=== PATIENT | female | born 1975 ===

== ENCOUNTER → 2020-12-31 14:57 | Outpatient (BNVA) | payer OTHER, SELFPAY | DX: N20.2 Calculus of kidney with calculus of ureter (principal); N39.0 Urinary tract infection, site not specified; R73.03 Prediabetes; Z91.040 Latex allergy status | CPT/HCPCS: 99212 ==

== ENCOUNTER → 2021-07-02 10:07 | Outpatient (BNVA) | payer OTHER, SELFPAY | PROVIDERS: Visit Provider Physician Assistant | DX: E66.9 Obesity, unspecified (principal); Z68.35 Body mass index [BMI] 35.0-35.9, adult; I10 Essential (primary) hypertension; E78.5 Hyperlipidemia, unspecified; K44.9 Diaphragmatic hernia without obstruction or gangrene; F32.A Depression, unspecified; K21.9 Gastro-esophageal reflux disease without esophagitis; R00.0 Tachycardia, unspecified; J45.909 Unspecified asthma, uncomplicated; Z86.69 Personal history of other diseases of the nervous system and sense organs | CPT/HCPCS: 99202 ==

== ENCOUNTER 2021-07-12 09:43 | Outpatient (REF) | payer OTHER, SELFPAY ==
--- NOTE | ~2021-07-12 | XR_ITS ---
EXAMINATION: XR CHEST CLINICAL INFORMATION: Tachycardia COMPARISON: None TECHNIQUE: 2 views of the chest were obtained. FINDINGS: The cardiac and mediastinal contours are normal. The lungs are clear. There is no pleural effusion or pneumothorax. Bony structures are normal. XR/XR chest 2V IMPRESSION: Unremarkable examination.
--- NOTE | 2021-07-12 10:00 | ECG_ITS ---
Test Reason : TACHYCARDIA Blood Pressure : / mmHG Vent. Rate : 064 BPM Atrial Rate : 064 BPM P-R Int : 126 ms QRS Dur : 084 ms QT Int : 416 ms P-R-T Axes : 054 039 051 degrees QTc Int : 429 ms Normal sinus rhythm Normal ECG No previous ECGs available Referred By: Toyin Andujar Electronically Signed By:AMY RYDER MD
[2021-07-12 10:05] LABS: MANUAL DIFF FLAG NO
[2021-07-12 10:27] LABS: Basophils Percent Auto 0.6 % (0-2); Eosinophils Absolute Auto 0.2 X10*3/uL (0.0-0.4); Eosinophils Percent Auto 4.4 % (0-4); Hematocrit 41.2 % (37.0-47.0); Hemoglobin 13.9 g/dl (12.0-16.0); Imm Gran Abs Auto 0.04 X10*3/uL (0.00-0.03); Imm Gran Pct Auto 0.8 % (0.0-0.4); Lymphocytes Absolute Auto 2.3 X10*3/uL (1.2-4.9); Lymphocytes Percent Auto 45.1 % (20-40); Mean Corpuscular HGB Conc 33.7 g/dl (31.0-35.0); Mean Corpuscular Hemoglobin 28.4 pg (27.0-33.0); Mean Corpuscular Volume 84.3 fL (80.0-98.0); Mean Platelet Volume 10.4 fL (9.4-12.3); Monocytes Absolute Auto 0.4 X10*3/uL (0.1-1.2); Monocytes Percent Auto 8.4 % (2-11); Neutrophils Percent Auto 40.7 % (45-73); Platelet Count 316 X10*3/uL (160-400); Red Blood Count 4.89 X10*6/uL (4.20-5.50); Red Cell Distribution Width 11.9 % (11.0-16.0)
[2021-07-12 11:01] LABS: Estimated Average Glucose 146 mg/dL; Hemoglobin A1c % 6.7 %
[2021-07-12 11:24] LABS: Alanine Aminotransferase 63 U/L (0-31); Albumin Level 4.2 g/dL (3.5-5.0); Alkaline Phosphatase 71 U/L (39-117); Anion Gap 12 (12-20); Aspartate Amino Transferase 44 U/L (5-31); Bilirubin Total 0.7 mg/dL (0.0-1.0); Blood Urea Nitrogen 11 mg/dL (9-16); C Reactive Protein 0.16 mg/dL (< or = 0.50); Calcium 9.6 mg/dL (8.4-10.2); Carbon Dioxide 27 mmol/L (22-29); Chloride 104 mmol/L (96-108); Cholesterol 170 mg/dL; Estimated Glomerular Filt Rate > 60; Glucose Random 132 mg/dL (60-115); HDL Cholesterol 45 mg/dL; Iron 124 mcg/dL (30-160); LDL Cholesterol Calculated 102 mg/dl; Percent Iron Saturation 42 % (15-50); Potassium 4.5 mmol/L (3.3-5.1); Sodium 138 mmol/L (135-145); Total Iron Binding Capacity 293 mcg/dL (228-428); Total Protein 7.1 g/dL (6.5-8.0); Triglycerides 118 mg/dL; Unsaturated Iron Binding 169 ug/dL
[2021-07-12 11:41] LABS: Ferritin 314 ng/mL (10-250); TSH reflex Free T4 3.17 uIU/mL (0.32-4.0)
[2021-07-12 11:51] LABS: Folate > 20.0 ng/mL (> or = 4.0); Vitamin B12 > 2000 pg/mL (200-900)
[2021-07-12 12:51] LABS: Insulin 26 uU/mL (2-29)
[2021-07-15 13:25] LABS: Calcium (PTHI) 9.6 mg/dL (8.6-10.2); PTHI 84 pg/mL (16-77)
[2021-07-16 16:46] LABS: Zinc 94 mcg/dL (60-130)
[2021-07-19 10:06] LABS: Vitamin B1 10 nmol/L (8-30)
[2021-07-20 17:02] LABS: Vitamin A 37 mcg/dL (38-98)
== END 2021-07-12 09:44 | disposition home or self-care (01) ==
LOC: HO.XRAY 09:43
PROVIDERS: PCP Nurse Practitioner Family; Visit Provider Physician Assistant
DX: R00.0 Tachycardia, unspecified (principal); E66.9 Obesity, unspecified; I10 Essential (primary) hypertension; K21.9 Gastro-esophageal reflux disease without esophagitis; K44.9 Diaphragmatic hernia without obstruction or gangrene
CPT/HCPCS: 36415; 71046; 80053; 80061; 82306; 82607; 82728; 82746; 83036; 83525; 83540; 83970; 84425; 84443; 84590; 84630; 85025; 86140; 93005

== ENCOUNTER 2021-07-16 13:10 | Outpatient (REF) | payer OTHER, SELFPAY ==
[2021-07-18 14:31] LABS: H Pylori Breath Test Negative (Negative)
== END 2021-07-16 13:11 | disposition home or self-care (01) ==
LOC: HO.LNP 13:10
PROVIDERS: Visit Provider Physician Assistant
DX: E66.9 Obesity, unspecified (principal); K21.9 Gastro-esophageal reflux disease without esophagitis; I10 Essential (primary) hypertension; K44.9 Diaphragmatic hernia without obstruction or gangrene; R00.0 Tachycardia, unspecified
CPT/HCPCS: 83013

== ENCOUNTER → 2021-07-16 13:10 | Outpatient (BNVA) | payer OTHER, SELFPAY | PROVIDERS: PCP Nurse Practitioner Family; Visit Provider Physician Assistant | DX: Z11.0 Encounter for screening for intestinal infectious diseases (principal) | CPT/HCPCS: 99211 ==

== ENCOUNTER → 2021-07-18 08:00 | Outpatient (BNVA) | payer OTHER, SELFPAY | PROVIDERS: PCP Nurse Practitioner Family; Visit Provider Dietitian, Registered | DX: E66.9 Obesity, unspecified (principal); Z68.35 Body mass index [BMI] 35.0-35.9, adult | CPT/HCPCS: 97802 ==

== ENCOUNTER → 2021-07-24 08:21 | Outpatient (BNVA) | payer OTHER, SELFPAY | PROVIDERS: PCP Nurse Practitioner Family; Visit Provider Surgery | DX: Z13.89 Encounter for screening for other disorder (principal) ==

== ENCOUNTER → 2021-07-31 08:15 | Outpatient (BNVA) | payer OTHER, SELFPAY | PROVIDERS: PCP Nurse Practitioner Family; Referring Provider Surgery; Visit Provider Dietitian, Registered | DX: E66.9 Obesity, unspecified (principal); Z68.35 Body mass index [BMI] 35.0-35.9, adult; E11.9 Type 2 diabetes mellitus without complications; Z71.3 Dietary counseling and surveillance | CPT/HCPCS: 97803 ==

== ENCOUNTER 2021-08-19 08:35 | Outpatient (REF) | payer OTHER, SELFPAY ==
--- NOTE | ~2021-08-19 | US_ITS ---
EXAMINATION: US COMPLETE ABDOMEN WITH LIVER ELASTOGRAPHY CLINICAL INFORMATION: Obesity. Gastroesophageal reflux disease COMPARISON: None. TECHNIQUE: Real-time imaging of the abdominal viscera. Noninvasive ultrasound liver fibrosis assessment is performed using Tristan ElastPQ point quantification shear wave elastography (2D-SWE) with a C5-2 MHz transducer. Multiple elastography samples are obtained. FINDINGS: PANCREAS: Not visualized due to bowel gas ABDOMINAL AORTA: The proximal, middle, and distal aortic segments are normal in caliber. INFERIOR VENA CAVA: Visualized portions are normal. LIVER: Liver echotexture is increased. There are hypoechoic areas adjacent to the gallbladder, characteristic location of focal fatty sparing. The liver demonstrates normal size and contour. No other focal lesion or intrahepatic biliary duct dilatation. The right lobe measures 15.7 cm in length. The left lobe measures 11.4 cm in length. Portal flow is normal/hepatopedal Shear wave liver elastography median stiffness is 1.6 m/s (reference: normal median stiffness is 1.3 m/s or less). IQR/median stiffness to assess sampling precision is 0.1 (reference: good quality data set is IQR/median stiffness of 0.15 or less). GALLBLADDER: There are gallstones. The gallbladder is normal in size. The gallbladder wall is normal. COMMON BILE DUCT: Normal in caliber measuring 0.3 cm in diameter. RIGHT KIDNEY: Normal. No hydronephrosis. No renal calculi or focal parenchymal lesions. The kidney measures 11 cm in maximum dimension. LEFT KIDNEY: Normal. No hydronephrosis. No renal calculi or focal parenchymal lesions. The kidney measures 11.7 cm in maximum dimension. SPLEEN: Normal. The spleen measures 9.7 cm in maximum dimension. FREE FLUID: None. US/US abdomen comp w elastography IMPRESSION: 1. Impression: Echogenic liver probably representing fatty infiltration. Gallstones. Nonvisualization of the pancreas. 2. Liver elastography: Adequate liver sampling . Normal liver stiffness. REFERENCE: Society of Radiologists in Ultrasound Liver Stiffness Thresholds (2020): LIVER STIFFNESS THRESHOLDS: *Liver Stiffness equal or less than 1.3 m/s: High probability of being normal. *Liver Stiffness less than 1.7 m/s: In the absence of other known clinical signs, rules out compensated advanced chronic liver disease. *Liver Stiffness 1.7-2.1 m/s: Suggestive of compensated advanced chronic liver disease but need further test for confirmation. *Liver Stiffness over 2.1 m/s: Rules in compensated advanced chronic liver disease. *Liver Stiffness over 2.4 m/s: Suggestive of clinically significant portal hypertension. QUALITY OF DATA SET: *IQR/Median value equal or less than 0.15 implies a quality data set. *IQR/Median value over 0.15 implies a poor quality data set. SIGNIFICANT CHANGE FROM PRIOR EXAM: Significant change if liver stiffness measurement is 10% or greater from prior exam. OTHER CONSIDERATIONS: The stage of liver fibrosis may be overestimated in the setting of acute hepatitis, liver inflammation, elevated liver function tests, hepatic vascular congestion, obstructive cholestasis, non-fasting state, and infiltrative diseases such as amyloidosis and lymphoma. In some patients with NAFLD, the liver stiffness thresholds for compensated advanced chronic liver disease may be lower. In causes other than viral hepatitis and NAFLD, liver stiffness thresholds are not well established.
--- NOTE | ~2021-08-19 | FL_ITS ---
EXAMINATION: XR FLUOROSCOPY UPPER GI WITH AIR CLINICAL INFORMATION: Preop bariatric surgery. COMPARISON: None. TECHNIQUE: Upper GI was performed using thin and thick barium and effervescent granules. FINDINGS: Esophageal motility is normal. There is mild gastroesophageal reflux. No hernia is seen. The stomach and duodenum are normal. No fold thickening, mass, ulcer or stricture is seen. FLUOROSCOPY TIME: 0.5 minutes. DOSE AREA PRODUCT: 5 Gy-cm2. FL/FL upper GI w air IMPRESSION: Mild gastroesophageal reflux otherwise unremarkable examination.
== END 2021-08-19 08:36 | disposition home or self-care (01) ==
LOC: HO.US 08:35
PROVIDERS: Visit Provider Surgery
DX: Z01.818 Encounter for other preprocedural examination (principal); E66.9 Obesity, unspecified; K21.9 Gastro-esophageal reflux disease without esophagitis; I10 Essential (primary) hypertension; K44.9 Diaphragmatic hernia without obstruction or gangrene; R00.0 Tachycardia, unspecified
CPT/HCPCS: 74246; 76705; 76981

== ENCOUNTER → 2021-08-22 08:14 | Outpatient (BNVA) | payer OTHER, SELFPAY | PROVIDERS: PCP Nurse Practitioner Family; Visit Provider Surgery | DX: Z13.89 Encounter for screening for other disorder (principal) ==

== ENCOUNTER → 2021-08-27 08:11 | Outpatient (BNVA) | payer OTHER, SELFPAY | PROVIDERS: PCP Nurse Practitioner Family; Referring Provider Surgery; Visit Provider Dietitian, Registered | DX: E66.01 Morbid (severe) obesity due to excess calories (principal); Z68.34 Body mass index [BMI] 34.0-34.9, adult | CPT/HCPCS: 97803 ==

== ENCOUNTER → 2021-10-01 15:23 | Outpatient (BNVA) | payer OTHER, SELFPAY | PROVIDERS: PCP Nurse Practitioner Family; Referring Provider Surgery; Visit Provider Dietitian, Registered | DX: E66.9 Obesity, unspecified (principal); Z68.32 Body mass index [BMI] 32.0-32.9, adult; Z71.3 Dietary counseling and surveillance | CPT/HCPCS: 97803 ==

== ENCOUNTER → 2021-10-31 10:22 | Outpatient (BNVA) | payer OTHER, SELFPAY | PROVIDERS: PCP Nurse Practitioner Family | DX: N20.2 Calculus of kidney with calculus of ureter (principal) | CPT/HCPCS: 99212 ==

== ENCOUNTER → 2021-11-25 15:14 | Outpatient (BNVA) | payer OTHER, SELFPAY | PROVIDERS: PCP Nurse Practitioner Family; Visit Provider Physician Assistant Surgical | DX: Z01.818 Encounter for other preprocedural examination (principal); E66.9 Obesity, unspecified; Z68.31 Body mass index [BMI] 31.0-31.9, adult | CPT/HCPCS: 99212 ==

== ENCOUNTER 2021-12-11 06:07 | Inpatient (IN) | payer OTHER, SELFPAY ==
[2021-11-27 13:52] VITALS: BMI 31.9
[2021-12-04 07:16] LABS: MANUAL DIFF FLAG NO
[2021-12-04 07:32] LABS: Basophils Percent Auto 0.9 % (0-2); Eosinophils Absolute Auto 0.1 X10*3/uL (0.0-0.4); Eosinophils Percent Auto 4.1 % (0-4); Hematocrit 43.4 % (37.0-47.0); Hemoglobin 14.8 g/dl (12.0-16.0); Imm Gran Abs Auto 0.01 X10*3/uL (0.00-0.03); Imm Gran Pct Auto 0.3 % (0.0-0.4); Lymphocytes Absolute Auto 1.9 X10*3/uL (1.2-4.9); Lymphocytes Percent Auto 54.7 % (20-40); Mean Corpuscular HGB Conc 34.1 g/dl (31.0-35.0); Mean Corpuscular Hemoglobin 28.7 pg (27.0-33.0); Mean Corpuscular Volume 84.1 fL (80.0-98.0); Mean Platelet Volume 10.4 fL (9.4-12.3); Monocytes Absolute Auto 0.3 X10*3/uL (0.1-1.2); Monocytes Percent Auto 9.5 % (2-11); Neutrophils Percent Auto 30.5 % (45-73); Platelet Count 312 X10*3/uL (160-400); Red Blood Count 5.16 X10*6/uL (4.20-5.50); Red Cell Distribution Width 11.9 % (11.0-16.0); White Blood Count 3.4 X10*3/uL (4.8-10.8)
[2021-12-04 07:39] LABS: Estimated Average Glucose 120 mg/dL; Hemoglobin A1c % 5.8 %
[2021-12-04 07:40] LABS: INTERNATIONAL NORM RATIO 1.1 (0.9-1.1); Prothrombin Time 12.7 SEC (10.0-13.1)
[2021-12-04 07:42] LABS: Partial Thromboplastin Time 31.4 SEC (26.0-36.4)
[2021-12-04 07:58] LABS: Alanine Aminotransferase 20 U/L (0-31); Albumin Level 4.2 g/dL (3.5-5.0); Alkaline Phosphatase 70 U/L (39-117); Anion Gap 17 (12-20); Aspartate Amino Transferase 22 U/L (5-31); Bilirubin Total 0.7 mg/dL (0.0-1.0); Blood Urea Nitrogen 21 mg/dL (9-16); C Reactive Protein 0.14 mg/dL (< or = 0.50); Calcium 9.8 mg/dL (8.4-10.2); Carbon Dioxide 24 mmol/L (22-29); Chloride 104 mmol/L (96-108); Cholesterol 271 mg/dL; Creatinine Clr Calc Pharmacy 77.4; Estimated Glomerular Filt Rate > 60; Glucose Random 120 mg/dL (60-115); HDL Cholesterol 48 mg/dL; LDL Cholesterol Calculated 196 mg/dl; Potassium 4.8 mmol/L (3.3-5.1); Sodium 140 mmol/L (135-145); Total Protein 7.3 g/dL (6.5-8.0); Triglycerides 136 mg/dL
[2021-12-04 08:19] LABS: TSH reflex Free T4 2.51 uIU/mL (0.32-4.0)
--- NOTE | 2021-12-07 15:10 | MHC.SHP ---
Pre-Procedural Eval Section A Date of Service: 12/07/21 The patient is an INPATIENT: Yes The History & Physical has been completed within 30 days and I have reviewed it.: Yes Section B Chief Complaint: obesity Relevant Family History (Specify if Yes): No Relevant Social History: None Present Medications: None Medical History: No relevant PMH History of Previous Operations: No relevant previous surgery Allergies: Allergies Allergy/AdvReac Type Severity Reaction Status Date / Time aspirin Allergy Intermediate Wheezing Verified 11/27/21 13:49 latex [LATEX] Allergy Intermediate EYES AND Verified 11/27/21 13:49 MOUTH SWELLING Review of Systems Sugical H&P ROS: Negative: Constitution, Cardiovascular, Respiratory, Neurological, Psychiatric, Hem-Onc, Allergic/Immunologic, Gastrointestinal, Genitourinary, Musculoskeletal, Integumentary, Endocrine and Eyes/Ears/Nose/Throat Exam Surgical H&P Exam: Normal: HEENT, Normal: Heart, Normal: Lungs, Normal: Extremities, Normal: Abdomen, Normal: Skin and Normal: Neurological Plan Diagnosis/Plan: Unchanged I have reviewed the history and physical and performed a pertinent physical examination on my patient. No changes have occurred unless specified.
[2021-12-10 14:59] LABS: COVID-19 Test Negative (Negative)
[2021-12-11] VITALS (16 sets, daily range): BP systolic 94–131; BP diastolic 51–109; PULSE 74–92; RESP 14–19; TEMP 36.2–36.9; O2SAT 97–100
[2021-12-11] MEDS: Lactated Ringers 1,000 ML 999 ML IV (06:49)
--- NOTE | 2021-12-11 07:26 | HO.ANESPROP2 ---
HPI - Anesthesia Eval Consult details Narrative: 46 yo female patient for Laparoscopic sleeve gastrectomy, possible PMFSH Active Problems Active Problems: All Active Problems (Updated 11/27/21 @ 13:56 by Elin Marquez RN) Obesity (Acute) Hypertension (Acute) Hyperlipidemia (Acute) Hiatal hernia (Acute) Depression (Acute) Hx of migraines (Acute) GERD (gastroesophageal reflux disease) (Acute) Tachycardia (Acute) Asthma (Acute). Inhalers prn BMI 35.0-35.9,adult (Acute) BMI 32.0-32.9,adult (Acute) Pre-op evaluation (Acute) DJD (degenerative joint disease) (Acute) Non-insulin dependent type 2 diabetes mellitus (Acute) Renal and ureteric calculus (Acute) Kidney stones, calcium oxalate (Acute) Denies JOSIAH Past Medical History Medical History DJD (degenerative joint disease) Kidney stones, calcium oxalate Non-insulin dependent type 2 diabetes mellitus Ovarian cyst Renal and ureteric calculus Renal stone UTI (urinary tract infection) Family History Family History Mother Hypertension Hypercholesteremia Father Asthma Daughter Obesity PCOS (polycystic ovarian syndrome) Son Hypertension Asthma Autism Family history of problems with anesthesia: No Surgical History Surgical History Hx of abdominoplasty Hx of section Hx of colonoscopy Hx of endoscopy Hx of hysterectomy Hx of lithotripsy History of Problems with Anesthesia: No Social History Social History 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 If so, by whom?: No Are you DNR?: No Advance Directives: No Advance Directives Information Provided: Yes Advance Directives on File: No Recently lost weight without trying: No Nutrition Risks: No Nutritional Risk Patient : No (Hysterectomy) : No Poor oral hygiene: No Meds Allergies Allergy/AdvReac Type Severity Reaction Status Date / Time aspirin Allergy Intermediate Wheezing Verified 11/27/21 13:49 latex [LATEX] Allergy Intermediate EYES AND Verified 11/27/21 13:49 MOUTH SWELLING Active Medications: Current Medications Lactated Ringer's (Lr) 1,000 mls @ 999 mls/hr IV .Q1H1M BETTE Stop: 12/11/21 08:15 Last Admin: 12/11/21 06:49 Dose: 999 mls/hr Home Medications Medication Instructions Recorded Confirmed Last Taken Type cetirizine 10 mg tablet 10 mg PO DAILY 12/31/20 11/27/21 Unknown History famotidine 20 mg tablet 20 mg PO BID 12/31/20 11/25/21 Unknown History fluticasone propionate 220 1 puff PO BID 12/31/20 11/27/21 Unknown History mcg/actuation HFA aerosol inhaler (Flovent HFA) montelukast 10 mg tablet 10 mg PO DAILY allergies 12/31/20 11/27/21 Unknown History rosuvastatin 20 mg tablet 20 mg PO DAILY 12/31/20 11/27/21 Unknown History trazodone 50 mg tablet 50 mg PO BEDTIME PRN insomnia 12/31/20 11/27/21 Unknown History albuterol sulfate 90 mcg/actuation 2 puff inhalation Q6H PRN 07/02/21 11/27/21 Unknown History aerosol inhaler (ProAir HFA) Shortness Of Breath Or Wheezing amlodipine 10 mg tablet 10 mg PO DAILY 07/02/21 11/27/21 Unknown History ezetimibe 10 mg tablet 10 mg PO DAILY 07/02/21 11/27/21 Unknown History valsartan 160 mg tablet 160 mg PO DAILY 07/02/21 11/27/21 Unknown History sertraline 100 mg tablet 50 mg PO DAILY 11/25/21 11/27/21 Unknown History sumatriptan succinate 25 mg tablet 1 tab PO PRN Migraine Headache 11/27/21 Unknown History Exam Exam Date and Time: December 11, 2021 0726 Height,Weight and Vital Signs: Height 5 ft 5 in Weight 87.18 kg Last Vital Signs Temp 97.6 F 12/11/21 06:47 Pulse 82 12/11/21 06:47 Resp 18 12/11/21 06:47 BP 131/109 H 12/11/21 06:47 Pulse Ox 100 12/11/21 06:47 O2 Del Method 12/11/21 06:47 Pertinent Lab Results Pertinent Lab Results: Laboratory Tests 12/04/21 12/04/21 12/04/21 07:05 07:15 07:15 WBC 3.4 L RBC 5.16 Hgb 14.8 Hct 43.4 MCV 84.1 MCH 28.7 MCHC 34.1 RDW 11.9 Plt Count 312 MPV 10.4 Immature Gran % (Auto) 0.3 Neut % (Auto) 30.5 L Lymph % (Auto) 54.7 H [place] % (Auto) 9.5 Eos % (Auto) 4.1 H Baso % (Auto) 0.9 Lymph # (Auto) 1.9 [place] # (Auto) 0.3 Eos # (Auto) 0.1 Baso # (Auto) 0.0 Abs Immat Gran (auto) 0.01 Absolute Neuts (auto) 1.0 L Absolute Nucleated RBC 0.000 Nucleated RBC % (auto) 0.0 PT 12.7 INR 1.1 APTT 31.4 Sodium Potassium Chloride Carbon Dioxide Anion Gap BUN Creatinine Estim Creat Clear Calc Estimated GFR Random Glucose Estimat Average Glucose Hemoglobin A1c % Calcium Total Bilirubin AST ALT Alkaline Phosphatase C-Reactive Protein Total Protein Albumin Triglycerides Cholesterol LDL Cholesterol, Calc HDL Cholesterol TSH COVID-19 (SEVEN) COVID-19 Clin Com Blood Type A Positive Antibody Screen NEGATIVE 12/04/21 12/04/21 12/10/21 07:15 07:15 14:34 WBC RBC Hgb Hct MCV MCH MCHC RDW Plt Count MPV Immature Gran % (Auto) Neut % (Auto) Lymph % (Auto) [place] % (Auto) Eos % (Auto) Baso % (Auto) Lymph # (Auto) [place] # (Auto) Eos # (Auto) Baso # (Auto) Abs Immat Gran (auto) Absolute Neuts (auto) Absolute Nucleated RBC Nucleated RBC % (auto) PT INR APTT Sodium 140 Potassium 4.8 Chloride 104 Carbon Dioxide 24 Anion Gap 17 BUN 21 H D Creatinine 0.99 Estim Creat Clear Calc 77.4 Estimated GFR > 60 Random Glucose 120 H Estimat Average Glucose 120 Hemoglobin A1c % 5.8 Calcium 9.8 Total Bilirubin 0.7 AST 22 D ALT 20 Alkaline Phosphatase 70 C-Reactive Protein 0.14 Total Protein 7.3 Albumin 4.2 Triglycerides 136 Cholesterol 271 D LDL Cholesterol, Calc 196 HDL Cholesterol 48 TSH 2.51 COVID-19 (SEVEN) Negative COVID-19 Clin Com See Note Blood Type Antibody Screen Airway Mallampati Class: II TM Dist: >3cm Neck ROM: Full Loose/Missing/Broken Teeth: Yes (Missing 1 bottom back right. denies loose or broken teeth) Heart: RRR Lungs: CTAB. No wheezing Assessment and Plan Assessment Anesthesia Assessment: Anesthesia Plan Discussed and Chart Reviewed Final Anesthetic Review Family History of Problems with Anesthesia: No History of Problems with Anesthesia: No NPO: Yes ASA Class: III Final Preanesthetic Review: No Changes in Pt Med Stat, Meds/Allgs Chart Reviewed, Consent Obtained/Reviewed and Anes Risks/Benef Reviewed Patient Risk: Intermediate Procedure Risk: Intermediate Assessment/Block/Sedation in SS: Assess/Block/Sedation- Anesthetic Plan Anesthetic Plan: GA Disposition: Standard PACU and Inp. Admit - Standard Bed
[2021-12-11] MEDS: ceFAZolin Sodium/Dextrose,Iso 2 GM/50 ML PIGGYBACK IV ×2 (08:10→14:29)
[2021-12-11] MEDS: ondansetron HCL 4 MG/2 ML VIAL IVPUSH ×2 (10:18→21:31)
--- NOTE | 2021-12-11 10:20 | P.BOP_ITS ---
Brief Operative Note Date of Service: 12/11/21 Pre-op diagnosis: Severe obesity with comorbidities (see below) Post-op diagnosis: same Procedure: INITIAL PATIENT BMI ON PRESENTATION AT OUR OFFICE: 35,6 kg.m2 LAST BMI BEFORE SURGERY: 32.1 kg/m2 COMORBIDITIES:non-insulin dependent diabetes, hypertension, hyperlipidemia, asthma, GERD, migraines, insomnia, liver steatosis, nephrolithiasis, depression, DJD, liver fibrosis ?The patient presented to the Weight Management Program with significant obesity that was negatively impacting the patient's comorbidities as listed above.? The program is a phased program with a special focus on preoperative medical weight management to promote substantial weight loss and prepare the patients for the second phase of the program: bariatric surgery. The patient participated in an intensive weekly lifestyle ?intervention and exercise program during which the patient ?has lost between the initial office visit and the last preoperative visit 21.3lbs, or 9.94% of initial actual body weight. It was deemed appropriate for the patient to now have bariatric surgery. In light of the current Covid-19 pandemic and the well documented strong association of obesity and increased risk of worse outcomes if infected with Covid-19 (REFERENCES: https://pubmed.ncbi.nlm.nih.gov/38165396/ ,? https://pubmed.ncbi.nlm.nih.gov/72543740/ ), any delay in undergoing bariatric surgery may lead to the patient's worsening health condition and increased?risk of more severe Covid-19 disease if infected. In addition a recent?study from [facility] published in [facility] on 04/15/2021 ([email or web address]) found that, among patients with obesity, substantial weight loss achieved with surgery was associated with improved outcomes of COVID-19 infection. The findings suggest that obesity can be a modifiable risk factor for the severity of COVID-19 infection. In addition, the patient met the BMI-criteria for bariatric surgery based on the BMI on initial presentation. The patient should not be penalized for achieving such weight loss because ?it is not sustainable long-term without surgical intervention and it was achieved in preparation for bariatric surgery ?under my direction and based on my published research ([email or web address] and? https://www.soard.org/article/B9417-6754(78)79130-X/pdf ) ?that a 10% preoperative weight loss improves long-term weight loss after surgery and reduces perioperative complications.? Insurance carriers such as [facility] have endorsed my recommendations ?and have included in their policies criteria to include a 10% preoperative weight loss requirement. PROCEDURE: Esophago-gastroscopy, laparoscopic lysis of adhesions, laparoscopic sleeve gastrectomy and laparoscopic gastropexy INDICATIONS: This is a 46 year-old female who was electively scheduled for laparoscopic, possibly open sleeve gastrectomy. The risks and complications of the procedure were discussed with the patient in advance, particularly the possibility of ; pulmonary embolism; staple line leak; bleeding; GERD; cardiac, pulmonary, or renal complications; as well as long-term problems such as insufficient weight loss, vitamin deficiency, strictures, or ulcers. The patient understood all the risks, and was in agreement to proceed with surgery. DESCRIPTION OF PROCEDURE: After informed consent was obtained from the patient, the patient was given preoperative antibiotics, and was transferred to the operating room. After successful induction of general anesthesia, pneumatic compression devices were placed on both lower extremities. An upper endoscopy was performed next. The oropharynx and esophagus appeared to be within normal limits. There was no diaphragmatic hernia present consistent with the findings of the preoperative upper GI. The stomach was entered. Then after all fluid and air were suctioned and the stomach was fully decompressed, the scope was withdrawn and secured in the mid esophagus. The patient was then prepped and draped in the usual sterile manner, and abdominal access was established at the right upper quadrant with the Drea technique. A 12 mm blunt port was inserted, and the abdomen was insufflated with CO2 to a pressure of 15 mmHg. Under direct visualization, additional ports were placed, specifically two 5 mm Versi-step ports to the left upper quadrant, and a 5 mm Versi-Step port to the right upper quadrant. 1% lidocaine plain was used to infiltrate all port sites as well as all fascia defects. Using the EndoClose suture passer device, I placed a #1 Polysorb tie across the falciform ligament in order to retract it up against the abdominal wall and prevent injury of the ligament with our instruments during the procedure. Following that, the patient was placed in a steep reverse Trendelenburg position. An additional 5 mm port was placed to the right flank for the Mediflex retractor that was used to retract the left lobe of the liver. The gastro-esophageal fat pad was opened with the ultrasonic device (Thunderbeat, Olympus) and the anterior esophagus and hiatus were exposed. The angle of His was opened with the ultrasonic device the fundus of the stomach from any diaphragmatic and splenic attachments. I then opened the gastrocolic ligament between the transverse colon and the greater curvature of the stomach with the ultrasonic device to enter the lesser sac and facilitate the ligation of the short gastric vessels. I started at a mid-point along the greater curvature and using the Thunderbeat, all short gastric vessels were divided all the way to the angle of His until the left zaire was completely dissected at its entirety. I then divided the gastro-colic ligament distally to a distance of about 3-4 cm proximal to the pylorus. There were extensive congenital adhesions between the pancreas and posterior gastric wall. Those were lysed completely with the ultrasonic device. Adhesiolysis took approximately 45 min to complete. The stomach was then divided transversely with one Endo LUKE-45 purple and four LUKE-60 articulating orange loads using the AEON stapler and loads. Every effort was made that the gastric sleeve had a tubular shape and an even caliber throughout. Once the sleeve resection was completed, the staple line of the gastric sleeve was reinforced with Hemoclips. The resected stomach was retrieved without difficulty from the Drea port. A gastropexy was then performed in order to prevent postoperative GERD and partial gastric volvulus. Several interrupted 2.0 Surgidac sutures were placed between the sleeve's staple line and the previously divided greater omentum and gastro-colic ligament using the Endo-Stitch device. ?An upper endoscopy was performed. There was no narrowing at the GE junction. The scope was easily advanced all the way to the pylorus which was clearly visualized. There was no narrowing anywhere and the sleeve's caliber was even throughout. The sleeve's staple line was inspected and there was no evidence of ischemia, bleeding or dehiscence. At that point the gastroscope was withdrawn from the patient?s mouth while we were decompressing the bowel and the stomach from any remaining air. I looked into the lesser sac to see how the sleeve was situating and it was situating well. There was no bleeding from the staple line, spleen, or short gastric vessels. The Mediflex retractor was removed, and the undersurface of the liver was inspected and there was no bleeding. The patient was placed in supine position. I closed the fascial defect of the 12 mm port site with a figure of eight #1 Polysorb suture. Then 60ml of Ropivacaine plain with 10 mg of Dexamethasone were used to infiltrate the fascial closure as well as all skin incisions. A total of 7ml of Zynrelef was applied in the Drea wound. At this point, the abdomen was deflated, all ports were removed under direct vision, and no bleeding was noted from any of the port sites. The skin incisions were irrigated with saline and were closed with 4-0 absorbable monofilament sutures. Steri-Strips and OpSites were used to cover all incisions. The patient was extubated and was transferred in stable condition to the recovery room for further care. I was present and performed all díaz parts of the procedure. Mr. Olivarez was the nurse first assist. There were no residents to assist with this case. Alonso Barreto MD, PhD, FACS Surgeon: Gordon Barreto MD Anesthesia: GETA, local and other (TAP block and 7ml of Zynrelef) Was an Mica Inspector used for this Procedure?: Yes Mica Inspector: Dave Olivarez Estimated blood loss (mL): 10 IV fluids (mL): 2,500 Urine output (mL): 0 (No Liriano to record) Pathology: other (Stomach) Condition: stable Disposition: PACU
--- NOTE | 2021-12-11 10:24 | P.DS_ITS ---
DS: Providers Provider Date of Service: 12/12/21 Date of admission: 12/11/21 06:07 Primary care physician: Unknown Physician DS: Summary Hospital Course Hospital Course: ADMITTING DIAGNOSIS: obesity, niddm, htn, hld, depression ? DISCHARGE DIAGNOSIS: same, s/p laparoscopic sleeve gastrectomy ? PAST SURGICAL HISTORY: abdomnoplasty, cesarian section, hysterectomy ? PROCEDURE: upper endoscopy, laparoscopic sleeve gastrectomy ? DISCHARGE SUMMARY: ? History of Present Illness: ? The patient is a?46 year-old woman with a BMI of?35.6 kg/m2 and associated co- morbidities as described above. The patient had extensive work-up,lost?22 lbs preoperatively and was electively scheduled for laparoscopic, possible open sleeve gastrectomy and gastropexy. Risks and complications of the surgery were discussed with the patient in advance, particularly the possibility of , pulmonary embolism, anastomotic leak, bleeding, bowel injury, GERD, cardiac, josiah al or pulmonary complications. The patient understood all the risks and was in agreement with the surgical plan. ? Hospital Course: ? The patient underwent an uneventful laparoscopic sleeve gastrectomy with gastropexy on the day of admission. Postoperatively, the patient was transferred to the surgical floor. The patient received IV Acetaminophen and IV dilaudid for pain control. Patient was started on bariatric phase 1 diet POD #0. On postoperative day one, the patient was feeling well without nausea, vomiting, fevers, or tachycardia. The patient had some mild incisional pain and the abdo men was soft. ? On the morning of postoperative day one, the patient was continued on 1 ounce of water or ice every half hour. During the day, the patient did fairly well, having some incisional pain, but able to ambulate adequately and to tolerate liquids well. ? Since the patient is doing well, we decided that the patient was ready to be discharged. The patient was given instructions to follow-up with me next week and to call my office for any fever over 101, persistent abdominal pain, nausea, vomiting, GERD, symptoms of DVT such as calf tenderness, or leg swelling, or pulmonary embolism such as chest pain or shortness of breath. The patient was also instructed to drink 40-60 ounces of liquids per day using the 1-ounce cups. The patient had been given prescriptions for Tylenol for pain, Zofran prn for nausea, and pantoprazole and carafate previously. The patient was encouraged to ambulate and use the incentive spirometer. The patient was allowed to shower, but no baths, and encouraged to stay active at home. All of these instructions were given to the patient personally. All questions were answered and the patient understood all instructions, the instructions were also given to the patient in print. Time Spent with Patient Time attestation: Total time spent providing and/or coordinating discharge services: Discharge coordination time: Less than 30 minutes Quality: Safe Use of Opioids Does Pt have an Active Cancer Diagnosis on the Problem List?: No Quality: Stroke Does the patient have a stroke diagnosis?: No Physical Exam Vital Signs: Vital Signs: Last Vital Signs Temp 97.6 F 12/11/21 06:47 Pulse 82 12/11/21 06:47 Resp 18 12/11/21 06:47 BP 131/109 H 12/11/21 06:47 Pulse Ox 100 12/11/21 06:47 O2 Del Method 12/11/21 06:47 BMI result Body Mass Index 31.9 DS: Data Data Completed and Pending Pending studies at discharge: Pending at discharge 12/11/21 09:24 Surgical [PTH] Routine Labs on day of discharge: Laboratory Results - last 24 hr 12/10/21 14:34 COVID-19 (SEVEN) Negative COVID-19 Clin Com See Note Discharge Plan Discharge Patient Disposition: Home, Self-Care Discharge Diagnosis: s/p laparoscopic sleeve gastrectomy Referrals: Physician,Unknown J [Physician] - 1 Week Discharge Medications: Continued pantoprazole 40 mg tablet,delayed release (DR/EC) 40 mg PO DAILY Qty: 30 3RF Rx Instructions: stop famotidine while on this medication sucralfate 100 mg/mL suspension 10 ml PO BID Qty: 400 3RF Rx Instructions: stop famotidine while on this medication ondansetron HCl 4 mg tablet 4 mg PO Q6H PRN (Reason: nausea and vomiting) Qty: 20 0RF sumatriptan succinate 25 mg tablet 1 tab PO PRN (Reason: Migraine Headache) rosuvastatin 20 mg tablet 20 mg PO DAILY trazodone 50 mg tablet 50 mg PO BEDTIME PRN (Reason: insomnia) cetirizine 10 mg tablet 10 mg PO DAILY montelukast 10 mg tablet 10 mg PO DAILY Flovent HFA 220 mcg/actuation HFA aerosol inhaler 1 puff PO BID sertraline 100 mg tablet 50 mg PO DAILY ezetimibe 10 mg tablet 10 mg PO DAILY albuterol sulfate [ProAir HFA] 90 mcg/actuation HFA aerosol inhaler 2 puff inhalation Q6H PRN (Reason: Shortness Of Breath Or Wheezing) Held valsartan-hydrochlorothiazide 160-12.5 mg tablet 1 tab DAILY Hold Instructions: Resume on 12/12/21. Measure your blood pressure daily and send it to Dr. Barreto. Don't take the medication before he responds. In general, don't take the medication if your blood pressure is below 120/80 Discontinued cholecalciferol (vitamin D3) 50 mcg (2,000 unit) capsule 50 mcg PO DAILY Qty: 30 6RF pyridoxine (vitamin B6) 100 mg tablet 100 mg PO DAILY 90 Days Qty: 90 1RF vitamin A palmitate 10,000 unit tablet 20,000 unit PO DAILY 14 Days Qty: 28 0RF polyethylene glycol 3350 [Miralax] 17 gram powder in packet 17 g PO DAILY Qty: 14 0RF Rx Instructions: dissolve each packet in 8 oz of water and have 7 packets on 12/09/21. Repeat on 12/10/21 famotidine 20 mg tablet 20 mg PO BID Discharge Orders: Discharge Order (Routine); Ordered 12/12/21 Ordered By: Gordon Barreto Activity on Discharge: No heavy lifting Stand Alone Forms: Patient Portal Discharge page Care Plan Goals: weight loss Health Concerns: obesity Plan of Treatment: No tub baths, sex or returning to work until discussed at first post op appointment. No exercise, alcohol, tobacco or illegal drug use. Continue to use incentive spirometer hourly while awake. Walk in home for 5- 10 minutes every 2 hours during the first week. Follow all instructions in the bariatric handbook and call with any questions.Discharge Instructions 1. Please call your doctor or come back to the emergency room should any new symptoms arise. 2. You will receive a courtesy call from [facility] 24-48 hours after discharge. 3. Activity: abstain from alcohol, practice limited stair climbing, no bending, no driving, no exercise, no illicit substances, no lifting, no sex, no tub bath, no work. 4. Diet: continue as discussed with Dr. Barreto. 5. Dressing Change/Wound Care: Your incision is covered by clear bandages and guaze underneath. If the area is tender, you may apply an ice pack for short intervals (no more than 20 minutes on, followed by at least 20 minutes off). Do not apply heat. Do not use creams, lotions, or topical antibiotics unless instructed to do so by your surgeon. These can cause infection or allergic reaction. 6. Call your doctor if: - Your temperature exceeds 101.5 F - You experience excessive pain or swelling - You have an unexpected reaction to medication - You have excessive bleeding - You experience continued vomiting/nausea - Your incision begins to separate - Your incision shows signs of infection such as increased redness, swelling, excessive pain, heat, or drainage (light blood or clear fluid is normal) 7. General instructions: No lifting greater than 5 lbs for the next 4 weeks. No driving within 24 hours of taking narcotic pain medications. If you do not move your bowels in the next 2 days, please take milk of magnesia over the counter. Please follow the post op diet and do not advance your diet until you are seen in the office in about 2 weeks. Please walk around your home every hour or two to prevent blood clots from forming in your legs. You do not need to wake from sleeping to walk. Please sleep in a bed or couch to prevent kinking at the hips and knees. Please take your incentive spirometer (your lung senior technical manager) home with you and use it for the next few days to prevent pneumonias. You may shower, no hot tubs, baths or swimming pools. Please call the office with any questions or concerns such as increasing abdominal pain, fever, chills, shortness of breath, chest pain, leg pain or swelling, or redness or drainage from your incisions. Please stay on stage 3 diet which includes sugar free clear liquids such as ice pops and jello and broth and crystal light. Avoid all carbonation. Please drink 3 protein shakes with at least 25-30 grams of protein daily or 3 of the Celebrate 4:1 shakes which can be purchased in our office. The Celebrate shakes have all of the bariatric vitamins you need if you consume these shakes. If you are drinking other protein shakes, you will need to purchase the Celebrate multivitamins and calcium that we provide in the office (they will provide all the vitamins you need). Please make sure you are consuming at least 40-60 ounces of water in addition to your 3 protein shakes daily. Do not hesitate to contact the office with any questions at . The patient's medical history has been reviewed and they are considered low risk for post op DVT and therefore DVT prophylaxis is not considered necessary. Travel after surgery was reviewed. The patient has not disclosed any travel plans during the first 30 days after surgery and they have been advised that within the first 30 days after surgery any bus, plane, train or car travel over 2 hours in duration is contraindicated due to the possibility of developing blood clots from immobility. Any travel, needs to include periods of ambulation of 10 minutes in duration every 2 hours.? The patient was instructed to discuss any plans for travel during this period with their bariatric surgeon. Assessment: stable s/p laparoscopic sleeve gastrectomy Discharge Date/Time: 12/12/21 09:29
[2021-12-11] MEDS: Metoclopramide HCl 10 MG/2 ML VIAL IVPUSH (10:30)
--- NOTE | 2021-12-11 10:31 | PM.PNGS ---
Subjective Subjective Date of Service: 12/12/21 Interval history: Patient has mild incisional pain, but was able to ambulate and use the incentive spirometer. She is tolerating phase 1 bariatric diet Physical Exam Vital Signs: Vital Signs: Last Vital Signs Temp 97.6 F 12/11/21 06:47 Pulse 82 12/11/21 06:47 Resp 18 12/11/21 06:47 BP 131/109 H 12/11/21 06:47 Pulse Ox 100 12/11/21 06:47 O2 Del Method 12/11/21 06:47 BMI result Body Mass Index 31.9 GI: Inspection: Yes normal to inspection, Yes incision (clean, dry and intact) and Yes obesity Extrem: Right lower extremity: normal to inspection (no calf tenderness) Left lower extremity: normal to inspection (no calf tenderness) Objective Data Active Medications Albuterol Sulfate (Albuterol Sulfate 90 Mcg 8 Gm Inhaler) 2 puff INHALE Q6H PRN PRN Reason: Shortness Of Breath Or Wheezing Famotidine (Famotidine/Pf 20 Mg/2 Ml Vial) 20 mg IVPUSH BID BETTE Fentanyl (Fentanyl Citrate/Pf 100 Mcg/2 Ml Vial) 25 mcg IVPUSH Q5M PRN; Protocol PRN Reason: Pain, Moderate (Pain Scale 4-6 Hydromorphone HCl (Hydromorphone Hcl 0.5 Mg/0.5 Ml Syringe) 0.25 mg IVPUSH Q5M PRN; Protocol PRN Reason: Pain, Severe (Pain Scale 7-10) Lactated Ringer's (Lr) 1,000 mls @ 100 mls/hr IVCONT .Q10H [facility] Loratadine (Loratadine 10 Mg Tablet) 10 mg PO DAILY [facility] Metoclopramide HCl (Metoclopramide Hcl 10 Mg/2 Ml Vial) 10 mg IVPUSH Q6H PRN PRN Reason: Nausea Montelukast Sodium (Montelukast Sodium 10 Mg Tablet) 10 mg PO DAILY [facility] Non-Formulary Medication (Fluticasone Propionate [Flovent Hfa]) 1 puff PO BID [facility] Non-Formulary Medication (Valsartan-Hydrochlorothiazide) 1 tab PO DAILY [facility] Sertraline HCl (Sertraline Hcl 50 Mg Tablet) 50 mg PO DAILY [facility] Labs CBC & Chem 7: 12/12/21 05:14 12/12/21 05:12 Labs: Laboratory Results - last 24 hr 12/10/21 14:34 COVID-19 (SEVEN) Negative COVID-19 Clin Com See Note Procedures Date of Service Date of Service: 12/12/21 Progress Note: A&P Assessment and plan (1) Obesity: Status: Acute Assessment and Plan: s/p laparoscopic sleeve gastrectomy, lysis of adhesions and gastropexy Doing well Check am labs. If OK, will discharge home? (2) BMI 32.0-32.9,adult: Status: Acute (3) Hypertension: Status: Acute (4) Hyperlipidemia: Status: Acute (5) Status post sleeve gastrectomy: Status: Acute (6) Intra-abdominal adhesions: Status: Acute (7) Congenital intra-abdominal adhesions: Status: Acute (8) Depression: Status: Acute (9) Hx of migraines: Status: Acute (10) GERD (gastroesophageal reflux disease): Status: Acute (11) Asthma: Status: Acute (12) DJD (degenerative joint disease): Status: Acute (13) Non-insulin dependent type 2 diabetes mellitus: Status: Acute (14) Renal and ureteric calculus: Status: Acute (15) Steatosis, liver: Status: Acute (16) Liver fibrosis: Status: Acute (17) Insomnia: Status: Acute Time Spent With Patient Time: Total time spent is greater than 50% in coordination of care (as documented) at patient's floor/unit and/or counseling patient: Quality Stroke Does the patient have a stroke diagnosis?: No VTE Prior VTE?: No VTE Risk Level:: Surgical - moderate VTE Device Contraindication: N/A - Device Ordered VTE Drug Contraindication: Treatment Not Indicated
[2021-12-11] MEDS: Famotidine/PF 20 MG/2 ML VIAL IVPUSH ×2 (10:54→21:31)
[2021-12-11 11:11] LABS: Hematocrit 40.6 % (37.0-47.0)
[2021-12-11] MEDS: Lactated Ringers 1,000 ML 125 ML IVCONT ×2 (11:21→19:21)
[2021-12-11 11:34] LABS: Anion Gap 16 (12-20); Blood Urea Nitrogen 17 mg/dL (9-16); Carbon Dioxide 24 mmol/L (22-29); Chloride 100 mmol/L (96-108); Estimated Glomerular Filt Rate 53; Glucose Random 184 mg/dL (60-115); Potassium 3.9 mmol/L (3.3-5.1); Sodium 136 mmol/L (135-145)
[2021-12-11 11:46] LABS: Calcium 8.9 mg/dL (8.4-10.2)
[2021-12-11] MEDS: HYDROmorphone HCl 0.5 MG/0.5 ML SYRINGE 0.25 MG IVPUSH ×2 (12:10→12:20)
--- NOTE | 2021-12-11 13:38 | PHA.MEDREC ---
Pharmacy Consult ? Medication Reconciliation Pharmacy has completed the medication reconciliation. Reviewed med rec done by nursing
--- NOTE | 2021-12-11 15:45 | MHC.CM.PN ---
PATIENT LIVES WITH FAMILY HCP- EDUCATED, SHE DECLINED AT THE TIME INDEPENDENT AT HOME AND COMMUNITY DENIES USE OF DME OR RECEIVING HOME SERVICES COVID X2 PCP: [facility] WILL TRANSPORT D/C PLAN: HOME SELF-CARE
[2021-12-11] MEDS: 0.9 % Sodium Chloride Flush 3 ML SYRINGE IVFLUSH (21:31)
[2021-12-11] MEDS: SUMAtriptan succinate 25 MG TABLET PO (23:09)
[2021-12-12] MEDS: Lactated Ringers 1,000 ML 125 ML IVCONT (03:25)
[2021-12-12 04:00] VITALS: BP 105/69; PULSE 66; RESP 16; TEMP 36.4; O2SAT 98
[2021-12-12 05:58] LABS: MANUAL DIFF FLAG NO
[2021-12-12 06:05] LABS: Basophils Percent Auto 0.1 % (0-2); Hematocrit 40.5 % (37.0-47.0); Imm Gran Abs Auto 0.03 X10*3/uL (0.00-0.03); Imm Gran Pct Auto 0.3 % (0.0-0.4); Lymphocytes Absolute Auto 1.1 X10*3/uL (1.2-4.9); Lymphocytes Percent Auto 12.1 % (20-40); Mean Corpuscular HGB Conc 34.6 g/dl (31.0-35.0); Mean Corpuscular Hemoglobin 28.9 pg (27.0-33.0); Mean Corpuscular Volume 83.5 fL (80.0-98.0); Mean Platelet Volume 10.8 fL (9.4-12.3); Monocytes Absolute Auto 0.5 X10*3/uL (0.1-1.2); Monocytes Percent Auto 5.5 % (2-11); Neutrophils Absolute Auto 7.2 x10*3/uL (2.0-8.3); Platelet Count 305 X10*3/uL (160-400); Red Blood Count 4.85 X10*6/uL (4.20-5.50); Red Cell Distribution Width 11.8 % (11.0-16.0); White Blood Count 8.8 X10*3/uL (4.8-10.8)
[2021-12-12] MEDS: ondansetron HCL 4 MG/2 ML VIAL IVPUSH (06:13)
[2021-12-12 06:41] LABS: Anion Gap 16 (12-20); Blood Urea Nitrogen 10 mg/dL (9-16); Calcium 9.1 mg/dL (8.4-10.2); Carbon Dioxide 24 mmol/L (22-29); Chloride 104 mmol/L (96-108); Creatinine Clr Calc Pharmacy 85.1; Estimated Glomerular Filt Rate > 60; Glucose Random 117 mg/dL (60-115); Potassium 4.4 mmol/L (3.3-5.1); Sodium 140 mmol/L (135-145)
[2021-12-12] MEDS: Famotidine/PF 20 MG/2 ML VIAL IVPUSH (07:17)
[2021-12-12 07:23] VITALS: BP 123/84; PULSE 81; RESP 18; TEMP 36.3; O2SAT 99
--- NOTE | 2021-12-12 08:11 | MHC.CM.PN ---
PATIENT HAS BEEN MEDICALLY CLEARED FOR DISCHARGE TODAY; DISCHARGE DISPOSITION IS HOME SELF-CARE. FAMILY TO TRANSPORT.
[2021-12-12] MEDS: Valsartan 160 MG TABLET PO (08:14)
--- NOTE | 2021-12-12 11:24 | HO.POSTANES ---
Post Anesthesia Evaluation Post Anesthesia Evaluation Vital Signs: Vital Signs Temp Pulse Resp BP Pulse Ox O2 Del Method 12/12/21 07:23 97.3 F 81 18 123/84 99 Room Air 12/12/21 04:00 97.5 F 66 16 105/69 98 Room Air 12/11/21 23:55 98.4 F 75 14 102/59 L 97 Room Air Anesthesia: General Endotracheal-GETA Mental Status: Awake Pain Control: Satisfactory (Mild incisional pain) Nausea/Vomiting: None Hydration: Adequate Anesthesia-Related Issues: No Anes. Related Issues
== END 2021-12-12 09:29 | disposition home or self-care (01) | DRG 403 ==
LOC: HO.SSSA 10:28 → HO.S3 13:33
PROVIDERS: Physician Assistant Surgical; Admitting Provider Surgery; PCP Nurse Practitioner Family; Visit Provider Surgery
PROC: 0DB64Z3 Excision of Stomach, Percutaneous Endoscopic Approach, Vertical (ICD-10-PCS; CPT 43845; principal; 2021-12-11 07:30)
DX: E66.01 Morbid (severe) obesity due to excess calories (principal); K74.00 Hepatic fibrosis, unspecified; E11.9 Type 2 diabetes mellitus without complications; K76.0 Fatty (change of) liver, not elsewhere classified; I10 Essential (primary) hypertension; E78.5 Hyperlipidemia, unspecified; J45.909 Unspecified asthma, uncomplicated; K21.9 Gastro-esophageal reflux disease without esophagitis; G47.00 Insomnia, unspecified; G43.909 Migraine, unspecified, not intractable, without status migrainosus; N20.0 Calculus of kidney; F32.A Depression, unspecified; K66.0 Peritoneal adhesions (postprocedural) (postinfection); M19.90 Unspecified osteoarthritis, unspecified site; Z20.822 Contact with and (suspected) exposure to COVID-19; Z68.32 Body mass index [BMI] 32.0-32.9, adult; Z79.51 Long term (current) use of inhaled steroids; Z87.442 Personal history of urinary calculi; Z88.6 Allergy status to analgesic agent; Z91.040 Latex allergy status; Z79.899 Other long term (current) drug therapy
CPT/HCPCS: 36415; 80048; 80053; 80061; 83036; 84443; 85014; 85018; 85025; 85610; 85730; 86140; 86850; 86900; 86901; 87635; 88307; 88342; A4649; C9088; J0131; J0690; J1100; J1170; J2250; J2370; J2405; J2550; J2765; J2795; J3010

== ENCOUNTER → 2022-01-01 13:33 | Outpatient (BNVA) | payer OTHER, SELFPAY | PROVIDERS: PCP Nurse Practitioner Family; Visit Provider Physician Assistant Surgical | DX: E66.3 Overweight (principal); Z68.28 Body mass index [BMI] 28.0-28.9, adult; Z98.84 Bariatric surgery status; Z90.3 Acquired absence of stomach [part of] | CPT/HCPCS: 99212 ==

== ENCOUNTER → 2022-01-16 14:40 | Outpatient (BNVA) | payer OTHER, SELFPAY | PROVIDERS: PCP Nurse Practitioner Family; Visit Provider Physician Assistant Surgical | DX: E66.3 Overweight (principal); Z90.3 Acquired absence of stomach [part of] | CPT/HCPCS: 99212 ==

== ENCOUNTER → 2022-02-14 15:01 | Outpatient (BNVA) | payer OTHER, SELFPAY | PROVIDERS: PCP Nurse Practitioner Family; Visit Provider Physician Assistant Surgical | DX: E66.3 Overweight (principal); Z90.3 Acquired absence of stomach [part of]; Z68.26 Body mass index [BMI] 26.0-26.9, adult | CPT/HCPCS: 99212 ==

== ENCOUNTER 2022-02-28 07:11 | Outpatient (REF) | payer OTHER, SELFPAY ==
[2022-02-28 08:24] LABS: Basophils Percent Auto 0.7 % (0-2); Eosinophils Absolute Auto 0.1 X10*3/uL (0.0-0.4); Eosinophils Percent Auto 2.4 % (0-4); Hematocrit 41.4 % (37.0-47.0); Hemoglobin 13.5 g/dl (12.0-16.0); Lymphocytes Absolute Auto 1.6 X10*3/uL (1.2-4.9); Lymphocytes Percent Auto 56.2 % (20-40); MANUAL DIFF FLAG SCAN; Mean Corpuscular HGB Conc 32.6 g/dl (31.0-35.0); Mean Corpuscular Hemoglobin 28.4 pg (27.0-33.0); Mean Platelet Volume 11.1 fL (9.4-12.3); Monocytes Absolute Auto 0.3 X10*3/uL (0.1-1.2); Monocytes Percent Auto 8.6 % (2-11); Neutrophils Absolute Auto 0.9 x10*3/uL (2.0-8.3); Neutrophils Percent Auto 32.1 % (45-73); Platelet Count 276 X10*3/uL (160-400); Red Blood Count 4.76 X10*6/uL (4.20-5.50); Red Cell Distribution Width 12.4 % (11.0-16.0); SCAN SMEAR FLAG 1; White Blood Count 2.9 X10*3/uL (4.8-10.8)
[2022-02-28 08:30] LABS: INTERNATIONAL NORM RATIO 1.1 (0.9-1.1); Prothrombin Time 12.1 SEC (10.0-13.1)
[2022-02-28 08:32] LABS: Partial Thromboplastin Time 27.8 SEC (26.0-36.4)
[2022-02-28 08:39] LABS: Estimated Average Glucose 103 mg/dL; Hemoglobin A1c % 5.2 %
[2022-02-28 08:49] LABS: SLIDE REVIEW VERIFIED
[2022-02-28 09:00] LABS: Alanine Aminotransferase 15 U/L (0-31); Alkaline Phosphatase 80 U/L (39-117); Anion Gap 15 (12-20); Aspartate Amino Transferase 19 U/L (5-31); Blood Urea Nitrogen 16 mg/dL (9-16); C Reactive Protein 0.05 mg/dL (< or = 0.50); Calcium 9.2 mg/dL (8.4-10.2); Carbon Dioxide 22 mmol/L (22-29); Chloride 106 mmol/L (96-108); Cholesterol 206 mg/dL; Estimated Glomerular Filt Rate > 60; Glucose Random 94 mg/dL (60-115); HDL Cholesterol 41 mg/dL; Iron 135 mcg/dL (30-160); LDL Cholesterol Calculated 149 mg/dl; Percent Iron Saturation 54 % (15-50); Potassium 4.1 mmol/L (3.3-5.1); Sodium 139 mmol/L (135-145); Total Iron Binding Capacity 252 mcg/dL (228-428); Total Protein 6.8 g/dL (6.5-8.0); Triglycerides 84 mg/dL; Unsaturated Iron Binding 117 ug/dL
[2022-02-28 09:10] LABS: Vitamin B12 > 2000 pg/mL (200-900)
[2022-02-28 09:29] LABS: Ferritin 194 ng/mL (10-250); Insulin 9 uU/mL (2-29); TSH reflex Free T4 1.08 uIU/mL (0.32-4.0)
[2022-02-28 12:44] LABS: Vitamin D 25-OH Total 31.8 ng/mL (>30)
[2022-03-02 11:27] LABS: Calcium (PTHI) 9.5 mg/dL (8.6-10.2); PTHI 70 pg/mL (16-77)
[2022-03-04 17:52] LABS: Zinc 75 mcg/dL (60-130)
[2022-03-06 15:11] LABS: Vitamin B1 9 nmol/L (8-30)
[2022-03-06 15:26] LABS: Vitamin A 39 mcg/dL (38-98)
== END 2022-02-28 07:12 | disposition home or self-care (01) ==
LOC: HO.LAB 07:11
PROVIDERS: Visit Provider Surgery
DX: K91.2 Postsurgical malabsorption, not elsewhere classified (principal); Z90.3 Acquired absence of stomach [part of]
CPT/HCPCS: 36415; 80053; 80061; 82306; 82607; 82728; 83036; 83525; 83540; 83970; 84425; 84443; 84590; 84630; 85025; 85610; 85730; 86140

== ENCOUNTER 2022-03-04 11:09 | Day surgery (SDC) | payer OTHER, SELFPAY ==
--- NOTE | 2022-02-28 22:45 | MHC.SHP ---
Pre-Procedural Eval Section A Date of Service: 02/28/22 The patient is an INPATIENT: No The History & Physical has been completed within 30 days and I have reviewed it.: Yes Section B Chief Complaint: Calculus of gallbladder without cholecystitis with Relevant Family History (Specify if Yes): No Relevant Social History: None Present Medications: None Medical History: No relevant PMH History of Previous Operations: Relevant previous surgery/procedure and date(s) (sleeve gastrectomy) Allergies: Allergies Allergy/AdvReac Type Severity Reaction Status Date / Time aspirin Allergy Intermediate Wheezing Verified 02/24/22 08:43 latex [LATEX] Allergy Intermediate EYES AND Verified 02/24/22 08:43 MOUTH SWELLING Review of Systems Sugical H&P ROS: Negative: Constitution, Cardiovascular, Respiratory, Neurological, Psychiatric, Hem-Onc, Allergic/Immunologic, Gastrointestinal, Genitourinary, Musculoskeletal, Integumentary, Endocrine and Eyes/Ears/Nose/Throat Exam Surgical H&P Exam: Normal: HEENT, Normal: Heart, Normal: Lungs, Normal: Extremities, Normal: Abdomen, Normal: Skin and Normal: Neurological Plan Diagnosis/Plan: Unchanged I have reviewed the history and physical and performed a pertinent physical examination on my patient. No changes have occurred unless specified.
--- NOTE | 2022-03-03 11:39 | P.CONAN_ITS ---
Documented by User: Kia Deshpande NP 03/03/22 11:41 HPI - Anesthesia Eval Consult details Narrative: 46yo F for Cholecystectomy Laparoscopic s/p gastric sleeve 11/2021 with GA-ETT 7 PMFSH Active Problems Active Problems: All Active Problems (Updated 02/24/22 @ 08:49 by Gordon Barreto MD) Cholelithiasis (Acute) Postgastrectomy malabsorption (Acute) Overweight (BMI 25.0-29.9) (Acute) Status post sleeve gastrectomy (Acute) Insomnia (Acute) Liver fibrosis (Acute) Steatosis, liver (Acute) Congenital intra-abdominal adhesions (Acute) Intra-abdominal adhesions (Acute) Obesity (Acute) Hypertension (Acute) Hyperlipidemia (Acute) Hiatal hernia (Acute) Depression (Acute) Hx of migraines (Acute) GERD (gastroesophageal reflux disease) (Acute) Tachycardia (Acute) Asthma (Acute) BMI 35.0-35.9,adult (Acute) BMI 32.0-32.9,adult (Acute) Pre-op evaluation (Acute) DJD (degenerative joint disease) (Acute) Non-insulin dependent type 2 diabetes mellitus (Acute) Renal and ureteric calculus (Acute) Kidney stones, calcium oxalate (Acute) Past Medical History Medical History Asthma DJD (degenerative joint disease) Kidney stones, calcium oxalate Non-insulin dependent type 2 diabetes mellitus Ovarian cyst Renal and ureteric calculus Renal stone UTI (urinary tract infection) Family History Family History Mother Hypertension Hypercholesteremia Father Asthma Daughter Obesity PCOS (polycystic ovarian syndrome) Son Hypertension Asthma Autism Family history of problems with anesthesia: No Surgical History Surgical History Hx of abdominoplasty Hx of section Hx of colonoscopy Hx of endoscopy Hx of hysterectomy Hx of lithotripsy Status post sleeve gastrectomy History of Problems with Anesthesia: No Social History Social History Are you a primary respiratory care assistant to a significant other at home: Yes (sons 27 + 16 has autism) Do you presently have visiting nurse or other home services: Yes (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) Alcohol intake: current Alcohol intake frequency: holidays/special occasions only Patient Tobacco Use Status: Never used Tobacco Use of substances other than those prescribed or required for medical reasons: No Are you DNR?: No Advance Directives: No Advance Directives Information Provided: Yes service: No Current occupational status: unemployed Meds Allergies Allergy/AdvReac Type Severity Reaction Status Date / Time aspirin Allergy Intermediate Wheezing Verified 03/04/22 11:26 latex [LATEX] Allergy Intermediate EYES AND Verified 03/04/22 11:26 MOUTH SWELLING Home Medications Medication Instructions Recorded Confirmed Last Taken Type cetirizine 10 mg tablet 10 mg PO DAILY 12/31/20 02/24/22 Unknown History fluticasone propionate 220 1 puff PO BID 12/31/20 02/24/22 Unknown History mcg/actuation HFA aerosol inhaler (Flovent HFA) montelukast 10 mg tablet 10 mg PO DAILY allergies 12/31/20 02/24/22 Unknown History trazodone 50 mg tablet 50 mg PO BEDTIME PRN insomnia 12/31/20 02/24/22 Unknown History albuterol sulfate 90 mcg/actuation 2 puff inhalation Q6H PRN 07/02/21 02/24/22 Unknown History aerosol inhaler (ProAir HFA) Shortness Of Breath Or Wheezing sumatriptan succinate 25 mg tablet 1 tab PO PRN Migraine Headache 11/27/21 02/24/22 Unknown History docusate sodium 100 mg capsule 100 mg PO DAILY PRN Constipation 03/04/22 Unknown History Exam Exam Date and Time: March 03, 2022 1139 Pertinent Lab Results Pertinent Lab Results: Laboratory Tests 02/28/22 07:30 Blood Type A Positive Antibody Screen NEGATIVE Laboratory Tests 02/28/22 02/28/22 07:30 07:30 WBC 2.9 L Hgb 13.5 Hct 41.4 Plt Count 276 Sodium 139 Potassium 4.1 Chloride 106 Carbon Dioxide 22 BUN 16 D Creatinine 0.84 Narrative Narrative: EKG 06/2021 Vent. Rate : 064 BPM ? ? Atrial Rate : 064 BPM ?? P-R Int : 126 ms? QRS Dur : 084 ms ? ? QT Int : 416 ms ? ? ? P-R-T Axes : 054 039 051 degrees ?? QTc Int : 429 ms ? Normal sinus rhythm Normal ECG No previous ECGs available Assessment and Plan Assessment Anesthesia Assessment: Chart Reviewed Final Anesthetic Review Family History of Problems with Anesthesia: No History of Problems with Anesthesia: No Documented by User: Scarlett Nails MD 03/04/22 13:57 [facility] Past Medical History Medical History Asthma DJD (degenerative joint disease) Kidney stones, calcium oxalate Non-insulin dependent type 2 diabetes mellitus Ovarian cyst Renal and ureteric calculus Renal stone UTI (urinary tract infection) Family History Family History Mother Hypertension Hypercholesteremia Father Asthma Daughter Obesity PCOS (polycystic ovarian syndrome) Son Hypertension Asthma Autism Surgical History Surgical History Hx of abdominoplasty Hx of section Hx of colonoscopy Hx of endoscopy Hx of hysterectomy Hx of lithotripsy Status post sleeve gastrectomy Social History Social History Are you a primary respiratory care assistant to a significant other at home: Yes (sons 27 + 16 has autism) Do you presently have visiting nurse or other home services: Yes (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) Alcohol intake: current Alcohol intake frequency: holidays/special occasions only Patient Tobacco Use Status: Never used Tobacco Use of substances other than those prescribed or required for medical reasons: No Are you DNR?: No Advance Directives: No Advance Directives Information Provided: Yes service: No Current occupational status: unemployed Meds Allergies Allergy/AdvReac Type Severity Reaction Status Date / Time aspirin Allergy Intermediate Wheezing Verified 03/04/22 11:26 latex [LATEX] Allergy Intermediate EYES AND Verified 03/04/22 11:26 MOUTH SWELLING Home Medications Medication Instructions Recorded Confirmed Last Taken Type cetirizine 10 mg tablet 10 mg PO DAILY 12/31/20 02/24/22 Unknown History fluticasone propionate 220 1 puff PO BID 12/31/20 02/24/22 Unknown History mcg/actuation HFA aerosol inhaler (Flovent HFA) montelukast 10 mg tablet 10 mg PO DAILY allergies 12/31/20 02/24/22 Unknown History trazodone 50 mg tablet 50 mg PO BEDTIME PRN insomnia 12/31/20 02/24/22 Unknown History albuterol sulfate 90 mcg/actuation 2 puff inhalation Q6H PRN 07/02/21 02/24/22 Unknown History aerosol inhaler (ProAir HFA) Shortness Of Breath Or Wheezing sumatriptan succinate 25 mg tablet 1 tab PO PRN Migraine Headache 11/27/21 02/24/22 Unknown History docusate sodium 100 mg capsule 100 mg PO DAILY PRN Constipation 03/04/22 Unknown History Exam Airway Mallampati Class: II TM Dist: >3cm Neck ROM: Full Loose/Missing/Broken Teeth: No Heart: RRR Lungs: CTA Assessment and Plan Assessment Anesthesia Assessment: Anesthesia Plan Discussed Final Anesthetic Review NPO: Yes ASA Class: II Final Preanesthetic Review: Meds/Allgs Chart Reviewed, Consent Obtained/Reviewed and Anes Risks/Benef Reviewed Patient Risk: Low Procedure Risk: Intermediate Anesthetic Plan Anesthetic Plan: GA Disposition: Standard PACU
[2022-03-03 15:34] LABS: COVID-19 Test Negative (Negative); IDNOW Serial# BCCEAD1C
[2022-03-04] VITALS (11 sets, daily range): BP systolic 126–144; BP diastolic 82–96; PULSE 65–91; RESP 11–20; TEMP 36.4–36.6; O2SAT 99–100; BMI 25.7
[2022-03-04] MEDS: Lactated Ringers 1,000 ML 100 ML IVCONT (11:50)
[2022-03-04 11:54] LABS: Glucose, Whole Blood 70 mg/dL (60-115)
--- NOTE | 2022-03-04 13:27 | P.BOP_ITS ---
Brief Operative Note Date of Service: 03/04/22 Pre-op diagnosis: Cholelithiasis Post-op diagnosis: same Procedure: PROCEDURE DATE: 03/04/22 PREOPERATIVE DIAGNOSIS: Symptomatic cholelithiasis POSTOPERATIVE DIAGNOSIS: Same as above. PROCEDURE: Laparoscopic cholecystectomy ? PLEASE REVIEW TO INCLUDE THIS PROCEDURE: and upper endoscopy Surgeon: Alonso Barreto M.D., Ph.D. Construction Trench Digger: Toyin Andujar PA-C Anesthesia: General endotracheal anesthesia Estimated blood loss: Minimal FINDINGS AND PROCEDURE: OPERATIVE INDICATIONS: The patient is a 46 year old female known to me who had an uneventful sleeve gastrectomy with excellent weight loss so far. During the preoperative workup, the patient was found to have cholelithiasis which appears now to be symptomatic. I recommended cholecystectomy. Risks and complications of the surgery were discussed with the patient in advance, particularly the postoperative bleeding, infection, DVT or PE, bile leak, major bile duct injury that may require additional surgical intervention, cardiac, pulmonary or renal complications among others. The patient understood the risks and was in agreement with the plan. PROCEDURE: After informed consent was obtained by the patient, the patient was transferred to the Operating Room and was placed in the supine position. The patient was given preoperative antibiotics and after successful induction of general anesthesia pneumatic compression devices were placed. The patient was then prepped and draped in the usual sterile manner and abdominal access was established with the Drea port. The abdomen was insufflated with C02 to a pressure of 15 mmHg. A 5 mm Versi-step port was placed, slightly to the right and superior from the umbilicus. The 5 mm camera was introduced. We inspected the area where the port had been placed and there was no injury. The patient was then placed initially in a steep reverse Trendelenburg position and three additional ports were placed, specifically a 12 mm Versi-step port just to the right of the midline below the xiphoid process and two 5 mm Versi-step ports at the right upper quadrant and right flank. 1% Lidocaine was used to anesthetize all port sites premptively. At that point the patient was placed in a steep reverse Trendelenburg position tilted to the left side. The gallbladder was retracted cephalad and laterally. The peritoneal attachments of the gallbladder at the triangle of Calot posteri laurita and anteriorly were taken down. The cystic duct was seen. There was an anterior and posterior branch of the cystic artery that were both seen. The cystic duct was skeletonized all the way to the infundibulum of the gallbladder . In a similar fashion we also cleaned the liver bed just behind the two branches of the cystic artery to make sure there was no additional structures in this area. Once we confirmed that all three structures were entering into the gallbladder and there were no other structures in the area, they were all clipped with two clips proximally, one distally and were cut in- between. We then using the electrocautery we slowly took down the gallbladder from the liver bed. Small areas of bleeding from the liver parenchyma were controlled with the cautery. After the gallbladder was completely detached from the liver bed, it was placed in an EndoCatch bag and was removed without difficulty from the xiphoid port. We then inspected the clips at the cystic duct and artery and were both in place. There was no active bleeding from the liver bed. At that point the patient was placed in supine position, we deflated the abdomen and we removed all ports under direct vision and no bleeding was noted from any of the port sites. The fascia of the 12 mm port was closed using a #1 Polysorb suture. 30cc of Ropivacaine plain were used to infiltrate the fascial closure as well as all skin incisions. The wounds were irrigated with saline mixed with antibiotic solution and then the skin was closed with 4-0 Monocryl subcuticular sutures antibiotic- coated. Steri-strips and OpSites were used to cover all incisions. The patient extubated and was transferred in stable condition to the Recovery Room for further care. I was present and performed all steps of the procedure. Con was the news production assistant. There were no residents to assist with this case. Alonso Barreto M.D., Ph.D., F.A.C.S. Surgeon: Gordon Barreto MD Anesthesia: GETA, local and other (TAP and Zynrelef) Was an Construction Trench Digger used for this Procedure?: No Construction Trench Digger: Toyin Andujar Estimated blood loss (mL): 10 IV fluids (mL): 800 Urine output (mL): 0 (No Liriano to record) Pathology: other (Gallbladder) Condition: stable Disposition: PACU
[2022-03-04] MEDS: oxyCODONE HCl Immed Release 5 MG TABLET PO (15:22)
[2022-03-04] MEDS: HYDROmorphone HCl 0.5 MG/0.5 ML SYRINGE 0.25 MG IVPUSH ×2 (15:22→15:47)
[2022-03-04] MEDS: Famotidine/PF 20 MG/2 ML VIAL IVPUSH (16:58)
== END 2022-03-04 17:19 | disposition home or self-care (01) ==
PROVIDERS: Physician Assistant Surgical; PCP Nurse Practitioner Family; Visit Provider Surgery
PROC: 0FT44ZZ Resection of Gallbladder, Percutaneous Endoscopic Approach (ICD-10-PCS; CPT 47562; principal; 2022-03-04 12:50)
DX: K80.10 Calculus of gallbladder with chronic cholecystitis without obstruction (principal); E11.9 Type 2 diabetes mellitus without complications; J45.909 Unspecified asthma, uncomplicated; Z98.84 Bariatric surgery status; Z79.51 Long term (current) use of inhaled steroids; Z79.899 Other long term (current) drug therapy; Z88.8 Allergy status to other drugs, medicaments and biological substances; Z87.442 Personal history of urinary calculi; Z91.040 Latex allergy status; Z20.822 Contact with and (suspected) exposure to COVID-19; K91.2 Postsurgical malabsorption, not elsewhere classified
CPT/HCPCS: 47562; 82947; 86850; 86900; 86901; 87635; 88304; C9088; J0131; J0690; J1100; J1170; J2250; J2405; J2795; J3010

== ENCOUNTER → 2022-03-12 10:59 | Outpatient (BNVA) | payer OTHER, SELFPAY | PROVIDERS: PCP Nurse Practitioner Family; Visit Provider Physician Assistant Surgical | DX: E66.3 Overweight (principal); Z68.25 Body mass index [BMI] 25.0-25.9, adult; Z98.84 Bariatric surgery status; Z90.3 Acquired absence of stomach [part of]; Z90.49 Acquired absence of other specified parts of digestive tract | CPT/HCPCS: 99212 ==

== ENCOUNTER → 2022-04-23 14:58 | Outpatient (BNVA) | payer OTHER, SELFPAY | PROVIDERS: PCP Nurse Practitioner Family; Visit Provider Physician Assistant Surgical | DX: Z98.84 Bariatric surgery status (principal); Z90.49 Acquired absence of other specified parts of digestive tract | CPT/HCPCS: 99212 ==

== ENCOUNTER → 2022-05-09 15:16 | Outpatient (BNVA) | payer OTHER, SELFPAY | PROVIDERS: PCP Nurse Practitioner Family; Visit Provider Dietitian, Registered | DX: E66.9 Obesity, unspecified (principal); Z90.3 Acquired absence of stomach [part of] | CPT/HCPCS: 97803 ==

== ENCOUNTER → 2022-06-04 15:17 | Outpatient (BNVA) | payer OTHER, SELFPAY | PROVIDERS: PCP Nurse Practitioner Family; Visit Provider Physician Assistant Surgical | DX: Z13.89 Encounter for screening for other disorder (principal) ==

== ENCOUNTER → 2022-08-01 14:07 | Outpatient (BNVA) | payer OTHER, SELFPAY | PROVIDERS: PCP Nurse Practitioner Family; Visit Provider Physician Assistant Surgical | DX: E66.9 Obesity, unspecified (principal); Z68.24 Body mass index [BMI] 24.0-24.9, adult; Z90.49 Acquired absence of other specified parts of digestive tract; Z90.3 Acquired absence of stomach [part of] | CPT/HCPCS: 99212 ==

== ENCOUNTER 2022-08-08 14:51 | Outpatient (REF) | payer OTHER, SELFPAY ==
--- NOTE | ~2022-08-08 | US_ITS ---
EXAMINATION: US RETROPERITONEAL LIMITED (RENAL ONLY) CLINICAL INFORMATION: Calculus of kidney with calculus of ureter. COMPARISON: Previous renal ultrasound October [address] July 2021 TECHNIQUE: Real-time imaging of the kidneys. FINDINGS: RIGHT KIDNEY: 10.8 x 5.1 x 5.1 cm (SAG x AP x TRV). The kidney is normal in size, contour, and echogenicity. Renal cortical thickness is normal. There is a 4 x 5 mm stone in the mid to lower pole. No focal parenchymal lesions or hydronephrosis. LEFT KIDNEY: 11.8 x 5.8 x 4.5 cm (SAG x AP x TRV). The kidney is normal in size, contour, and echogenicity. Renal cortical thickness is normal. No calculi or focal parenchymal lesions. No hydronephrosis. US/US renal BI IMPRESSION: Right renal stone. Normal left kidney.
== END 2022-08-08 14:52 | disposition home or self-care (01) ==
LOC: HO.US 14:51
PROVIDERS: Visit Provider Nurse Practitioner Family
DX: N20.2 Calculus of kidney with calculus of ureter (principal)
CPT/HCPCS: 76775

== ENCOUNTER 2022-09-10 07:54 | Outpatient (REF) | payer OTHER, SELFPAY ==
[2022-09-10 08:20] LABS: Basophils Percent Auto 0.8 % (0-2); Eosinophils Absolute Auto 0.1 X10*3/uL (0.0-0.4); Eosinophils Percent Auto 1.9 % (0-4); Hemoglobin 13.5 g/dl (12.0-16.0); Imm Gran Abs Auto 0.01 X10*3/uL (0.00-0.03); Imm Gran Pct Auto 0.4 % (0.0-0.4); Lymphocytes Absolute Auto 1.5 X10*3/uL (1.2-4.9); Lymphocytes Percent Auto 55.3 % (20-40); MANUAL DIFF FLAG SCAN; Mean Corpuscular HGB Conc 33.8 g/dl (31.0-35.0); Mean Platelet Volume 10.1 fL (9.4-12.3); Monocytes Absolute Auto 0.2 X10*3/uL (0.1-1.2); Monocytes Percent Auto 9.2 % (2-11); Neutrophils Absolute Auto 0.9 x10*3/uL (2.0-8.3); Neutrophils Percent Auto 32.4 % (45-73); Platelet Count 279 X10*3/uL (160-400); Red Blood Count 4.65 X10*6/uL (4.20-5.50); Red Cell Distribution Width 12.1 % (11.0-16.0); SCAN SMEAR FLAG 1; White Blood Count 2.6 X10*3/uL (4.8-10.8)
[2022-09-10 08:31] LABS: Estimated Average Glucose 97 mg/dL
[2022-09-10 08:43] LABS: SLIDE REVIEW VERIFIED
[2022-09-10 08:58] LABS: Alanine Aminotransferase 18 U/L (0-31); Alkaline Phosphatase 103 U/L (39-117); Anion Gap 12 (12-20); Aspartate Amino Transferase 20 U/L (5-31); Blood Urea Nitrogen 18 mg/dL (9-16); C Reactive Protein < 0.04 mg/dL (< or = 0.50); Calcium 9.2 mg/dL (8.4-10.2); Carbon Dioxide 25 mmol/L (22-29); Chloride 107 mmol/L (96-108); Cholesterol 216 mg/dL; Estimated Glomerular Filt Rate > 60; Glucose Random 98 mg/dL (60-115); HDL Cholesterol 55 mg/dL; Iron 178 mcg/dL (30-160); LDL Cholesterol Calculated 141 mg/dl; Percent Iron Saturation 63 % (15-50); Potassium 4.7 mmol/L (3.3-5.1); Sodium 139 mmol/L (135-145); Total Iron Binding Capacity 281 mcg/dL (228-428); Total Protein 6.8 g/dL (6.5-8.0); Triglycerides 104 mg/dL; Unsaturated Iron Binding 103 ug/dL
[2022-09-10 09:26] LABS: Ferritin 133 ng/mL (10-250); Folate 14.6 ng/mL (> or = 4.0); Insulin 6 uU/mL (2-29); TSH reflex Free T4 2.02 uIU/mL (0.32-4.0); Vitamin B12 > 2000 pg/mL (200-900)
[2022-09-11 15:44] LABS: Calcium (PTHI) 9.2 mg/dL (8.6-10.2); PTHI 117 pg/mL (16-77)
[2022-09-17 14:24] LABS: Vitamin B1 8 nmol/L (8-30)
[2022-09-18 02:34] LABS: Zinc 60 mcg/dL (60-130)
[2022-09-18 16:59] LABS: Vitamin A 52 mcg/dL (38-98)
== END 2022-09-10 07:55 | disposition home or self-care (01) ==
LOC: HO.LAB 07:54
PROVIDERS: Visit Provider Physician Assistant Surgical
DX: Z90.3 Acquired absence of stomach [part of] (principal); Z90.49 Acquired absence of other specified parts of digestive tract
CPT/HCPCS: 36415; 80053; 80061; 82306; 82607; 82728; 82746; 83036; 83525; 83540; 83970; 84425; 84443; 84590; 84630; 85025; 86140

== ENCOUNTER 2023-01-13 12:59 | Outpatient (AMB) | payer OTHER, SELFPAY ==
--- NOTE | 2023-01-13 13:08 | A.OFFVIS_ITS ---
Intake VS Expanded 01/13/23 13:14 Height 5 ft 5 in Weight 147 lb 9.6 oz BMI 24.6 BP 137/89 Blood Pressure Location Rt brachial Blood Pressure Position Sitting Pulse 81 Pulse Source Pulse Oximeter Temp 96.9 F Temperature Source Temporal Artery Scan Pulse Oximetry 100 Oxygen Delivery Method Room Air Body Fat 51.0 Body Fat Percentage 34.5 Free Fat Mass 96.6 Muscle Mass 91.8 Visceral Mass 6.0 Water Mass 68.8 BMR 1,323 Intake Visit Reasons: PO LSG 12/11/21 Allergies aspirin Allergy (Intermediate, Verified 01/13/23 13:13) Wheezing latex [LATEX] Allergy (Intermediate, Verified 01/13/23 13:13) EYES AND MOUTH SWELLING Medication List - Last Reconciled 01/13/23 by KINGSTON Gray albuterol sulfate 90 mcg/actuation (ProAir HFA) 2 puffs inhalation Q6H PRN cetirizine 10 mg PO DAILY cholecalciferol (vitamin D3) 50 mcg PO DAILY docusate sodium 100 mg PO DAILY PRN fluticasone propionate 220 mcg/actuation (Flovent HFA) 1 puff PO BID montelukast 10 mg PO DAILY sumatriptan succinate 1 tab PO PRN trazodone 50 mg PO BEDTIME PRN HPI HPI Comments History of Present Illness Details This?is a?47?yo female who is s/p LSG 12/11/2021. Presents for 1 year post op visit. Weight at last visit on 08/01/2022 was 144.8 pounds with a BMI of 24, weight today is 147.6 pounds, representing a 2.8 pound weight gain with a BMI today of 24.6.? No complaints of nausea, emesis, abdominal pain or reflux, or constipation. was on vacation in [place], had 2 weeks of diarrhea and found to have elevated fecal calprotectin. Was recommended to have colonoscopy, was not done in [place]. Planning to follow up with her GI here. Currently, having intermittent episodes of looser stools every 2-3 days. Present meal plan includes: trying to follow a maintenance meal plan, getting enough protein while in [place] was less consistent uses shakes, bars, and regular food has not been taking MVI due to elevated B12 level All meals last 20 - 30 minutes and does not drink and eat at the same time. Exercise routine includes: has not been exercising consistently but plans to return to more walking Did the patient ever have any of these conditions and are they resolved or still being treated? GERD: rare JOSIAH:? never DM:? never HTN:?resolved Hyperlipidemia:?resolved Post op complications:?none PFSH Medical History Asthma DJD (degenerative joint disease) Kidney stones, calcium oxalate Non-insulin dependent type 2 diabetes mellitus Ovarian cyst Renal and ureteric calculus Renal stone UTI (urinary tract infection) Surgical History Status post sleeve gastrectomy Hx of lithotripsy Hx of endoscopy Hx of colonoscopy Hx of abdominoplasty Hx of hysterectomy Hx of section Family History Mother Hypertension Hypercholesteremia Father Asthma Daughter Obesity PCOS (polycystic ovarian syndrome) Son Hypertension Asthma Autism Social History (Updated 04/23/22 @ 15:13 by Letty Ross CMA) Are you a primary career development manager to a significant other at home: Yes (sons 27 + 16 has autism) Do you presently have visiting nurse or other home services: Yes (for son [employer] 2 hours/day) Alcohol intake: current Alcohol intake frequency: holidays/special occasions only Patient Tobacco Use Status: Never used Tobacco service: No Current occupational status: unemployed Physical Exam Const General: cooperative, comfortable and no acute distress Orientation/consciousness: patient oriented x3 GI Other: soft, nontender, nondistended, incisions well healed, no hernia, no masses Neuro General: patient oriented x3 Assessment & Plan Assessment & Plan (1) Status post sleeve gastrectomy: Comment: 12/11/21 Code(s): Z90.3 - Acquired absence of stomach [part of] Plan Discussed that recent diarrhea is most likely related to recent travel, possible bacterial infection; GI can help with workup if related to any IBD. Pt in agreement. Otherwise doing well maintaining weight loss. Will recheck labs as pt has not been taking MVI, had stopped due to elevated levels. RTC 6 months, can return sooner if pt desires a visit with RD to review maintenance. Patient is at healthy BMI and is considered stable at this time. I spent a total of 30 minutes reviewing/updating records, examining the patient and counseling the patient on weight management as detailed above. Orders: Orders Insulin Today Z90.3 - Acquired absence of stomach [part of] Complete Blood Count Auto Diff Today Z90.3 - Acquired absence of stomach [part of] Vitamin B12 and Folate Today Z90.3 - Acquired absence of stomach [part of] Zinc Today Z90.3 - Acquired absence of stomach [part of] Vitamin A Today Z90.3 - Acquired absence of stomach [part of] Ferritin Today Z90.3 - Acquired absence of stomach [part of] TSH reflex Free T4 Today Z90.3 - Acquired absence of stomach [part of] Lipid Panel Today Z90.3 - Acquired absence of stomach [part of] IRON PROFILE Today Z90.3 - Acquired absence of stomach [part of] Comprehensive Met. Panel Today Z90.3 - Acquired absence of stomach [part of] Vitamin B1 Today Z90.3 - Acquired absence of stomach [part of] C Reactive Protein Today Z90.3 - Acquired absence of stomach [part of] PTHI Today Z90.3 - Acquired absence of stomach [part of] Vitamin D 25-OH Total Today Z90.3 - Acquired absence of stomach [part of] Hemoglobin A1c Today Z90.3 - Acquired absence of stomach [part of] Coding Level of Care Code Est Pt Level 4 (98625) Diagnoses Status post sleeve gastrectomy Z90.3
[2023-01-13 13:14] VITALS: BP 137/89; PULSE 81; TEMP 36.1; O2SAT 100; BMI 24.6
== END 2023-01-13 13:36 | disposition home or self-care (01) ==
PROVIDERS: PCP Nurse Practitioner Family; Visit Provider Physician Assistant Surgical
DX: E66.3 Overweight (principal); Z68.24 Body mass index [BMI] 24.0-24.9, adult; Z90.3 Acquired absence of stomach [part of]; Z98.84 Bariatric surgery status
CPT/HCPCS: 99214

== ENCOUNTER → 2023-01-13 12:59 | Outpatient (BNVA) | payer OTHER, SELFPAY | PROVIDERS: PCP Nurse Practitioner Family; Visit Provider Physician Assistant Surgical | DX: E66.9 Obesity, unspecified (principal); Z68.24 Body mass index [BMI] 24.0-24.9, adult; Z90.49 Acquired absence of other specified parts of digestive tract; Z90.3 Acquired absence of stomach [part of] | CPT/HCPCS: 99212 ==

== ENCOUNTER 2023-01-20 09:02 | Outpatient (REF) | payer OTHER, SELFPAY ==
[2023-01-20 09:44] LABS: MANUAL DIFF FLAG NO
[2023-01-20 10:34] LABS: Basophils Percent Auto 0.6 % (0-2); Eosinophils Absolute Auto 0.1 X10*3/uL (0.0-0.4); Eosinophils Percent Auto 2.7 % (0-4); Hematocrit 43.7 % (37.0-47.0); Hemoglobin 14.4 g/dl (12.0-16.0); Imm Gran Abs Auto 0.01 X10*3/uL (0.00-0.03); Imm Gran Pct Auto 0.3 % (0.0-0.4); Lymphocytes Absolute Auto 1.7 X10*3/uL (1.2-4.9); Mean Corpuscular Hemoglobin 28.6 pg (27.0-33.0); Mean Corpuscular Volume 86.9 fL (80.0-98.0); Mean Platelet Volume 10.5 fL (9.4-12.3); Monocytes Absolute Auto 0.2 X10*3/uL (0.1-1.2); Monocytes Percent Auto 7.3 % (2-11); Neutrophils Absolute Auto 1.3 x10*3/uL (2.0-8.3); Neutrophils Percent Auto 39.1 % (45-73); Platelet Count 295 X10*3/uL (160-400); Red Blood Count 5.03 X10*6/uL (4.20-5.50); Red Cell Distribution Width 12.2 % (11.0-16.0); White Blood Count 3.3 X10*3/uL (4.8-10.8)
[2023-01-20 10:42] LABS: Estimated Average Glucose 100 mg/dL; Hemoglobin A1c % 5.1 % (<6.0)
[2023-01-20 11:20] LABS: Alanine Aminotransferase 14 U/L (0-31); Albumin Level 4.1 g/dL (3.5-5.0); Alkaline Phosphatase 93 U/L (39-117); Anion Gap 11 (12-20); Aspartate Amino Transferase 19 U/L (5-31); Bilirubin Total 0.5 mg/dL (0.0-1.0); Blood Urea Nitrogen 18 mg/dL (9-16); C Reactive Protein < 0.10 mg/dL (< or = 0.50); Calcium 9.4 mg/dL (8.4-10.2); Carbon Dioxide 28 mmol/L (22-29); Chloride 105 mmol/L (96-108); Cholesterol 272 mg/dL (<200); Estimated Glomerular Filt Rate > 60; Glucose Random 98 mg/dL (60-115); HDL Cholesterol 64 mg/dL (>40); Iron 134 mcg/dL (30-160); LDL Cholesterol Calculated 183 mg/dL (<100); Percent Iron Saturation 49 % (15-50); Potassium 5.1 mmol/L (3.3-5.1); Sodium 139 mmol/L (135-145); Total Iron Binding Capacity 274 mcg/dL (228-428); Total Protein 7.6 g/dL (6.5-8.0); Triglycerides 127 mg/dL (<150); Unsaturated Iron Binding 140 ug/dL
[2023-01-20 11:27] LABS: Ferritin 158 ng/mL (10-250); Insulin 8 uU/mL (2-29); TSH reflex Free T4 1.92 uIU/mL (0.32-4.0); Vitamin D 25-OH Total 25.8 ng/mL (>30)
[2023-01-20 11:35] LABS: Folate 10.9 ng/mL (> or = 4.0); Vitamin B12 > 2000 pg/mL (200-900)
[2023-01-21 16:09] LABS: Calcium (PTHI) 9.4 mg/dL (8.6-10.2); PTHI 56 pg/mL (16-77)
[2023-01-24 01:13] LABS: Zinc 68 mcg/dL (60-130)
[2023-01-24 15:53] LABS: Vitamin B1 13 nmol/L (8-30)
[2023-01-24 16:18] LABS: Vitamin A 52 mcg/dL (38-98)
== END 2023-01-20 09:03 | disposition home or self-care (01) ==
LOC: HO.LAB 09:02
PROVIDERS: Visit Provider Physician Assistant Surgical
DX: Z90.3 Acquired absence of stomach [part of] (principal)
CPT/HCPCS: 36415; 80053; 80061; 82306; 82607; 82728; 82746; 83036; 83525; 83540; 83970; 84425; 84443; 84590; 84630; 85025; 86140

== ENCOUNTER 2023-07-13 13:01 | Outpatient (AMB) | payer OTHER, SELFPAY ==
--- NOTE | 2023-07-13 13:19 | MHC.OFFVISWM ---
Intake VS Expanded 07/13/23 13:29 BP 142/81 H Blood Pressure Location Rt brachial Blood Pressure Position Sitting Pulse 83 Pulse Source Pulse Oximeter Temp 97.4 F Temperature Source Temporal Artery Scan Pulse Oximetry 99 Oxygen Delivery Method Room Air Height 5 ft 5 in Weight 165 lb 9.6 oz BMI 27.6 Body Fat % 37.2 Body Fat Mass 61.6 Fat Free Mass 104.0 Visceral Fat Rating 7.0 Body Water % 44.7 Body Water Mass 74.0 Muscle Mass/Score 98.8 Basal Metabolic Rate/Score 1,429 Intake Visit Reasons: (OV) PO LSG 12/11/21 Allergies aspirin Allergy (Intermediate, Verified 07/13/23 13:32) Wheezing latex [LATEX] Allergy (Intermediate, Verified 07/13/23 13:32) EYES AND MOUTH SWELLING Medication List - Last Reconciled 07/13/23 by Toyin Andujar PA-C albuterol sulfate 90 mcg/actuation (ProAir HFA) 2 puffs inhalation Q6H PRN cetirizine 10 mg PO DAILY cholecalciferol (vitamin D3) 125 mcg PO DAILY docusate sodium 100 mg PO DAILY PRN fluticasone propionate 220 mcg/actuation (Flovent HFA) 1 puff PO BID montelukast 10 mg PO DAILY sumatriptan succinate 1 tab PO PRN trazodone 50 mg PO BEDTIME PRN HPI HPI Comments History of Present Illness Details 47 yo woman now 18 months s/p LSG. 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 Stopped B12 and MVI becasue B!@ level was above 2,000. Will check labs again now. Post op labs done Jan 2023. No n/v/abd apin - some times reflux. Her goal weight is 155 - 160 lbs - wants to lose 10 lbs now. Meal plan: just picks all day - no set meals dinner at 7 and 4pm 9am - 2 eggs with 2 crackers or tomato, cheese avocado. Crystal lite 4pm - 3 oz rice/rm with 4-5 oz chicken and 1 cup vegetables. 7 pm - bar or shake Exercise - 5 -6 d/wk - starting again after 2 months.treadmill at home - 1 hour - thinks 200 calories [facility] Medical History (Updated 07/13/23 @ 13:35 by Toyin Andujar PA-C) Overweight Nausea Pre-op evaluation BMI 32.0-32.9,adult BMI 35.0-35.9,adult Obesity Asthma Ovarian cyst DJD (degenerative joint disease) Non-insulin dependent type 2 diabetes mellitus Renal and ureteric calculus Renal stone Kidney stones, calcium oxalate UTI (urinary tract infection) Surgical History Status post sleeve gastrectomy Hx of lithotripsy Hx of endoscopy Hx of colonoscopy Hx of abdominoplasty Hx of hysterectomy Hx of section Family History Mother Hypertension Hypercholesteremia Father Asthma Daughter Obesity PCOS (polycystic ovarian syndrome) Son Hypertension Asthma Autism Social History (Updated 07/13/23 @ 13:33 by Letty Ross CMA) Are you a primary critical care paramedic to a significant other at home: Yes (sons 27 + 16 has autism) Do you presently have visiting nurse or other home services: Yes (for son DIRECT MARKETING EXECUTIVE 2 hours/day) Alcohol intake: current Alcohol intake frequency: does not drink Patient Tobacco Use Status: Never used Tobacco service: No Current occupational status: unemployed Physical Exam Vital Signs: Last Vital Signs Temp 97.4 F 07/13/23 13:29 Pulse 83 07/13/23 13:29 BP 142/81 H 07/13/23 13:29 Pulse Ox 99 07/13/23 13:29 Oxygen Delivery Method Room Air 07/13/23 13:29 BMI result Body Mass Index 27.6 GI Inspection: Yes incision (completely healed) Palpation (GI): Soft to palpation, nontender, no hernias and no masses Assessment & Plan Assessment & Plan (1) Overweight (BMI 25.0-29.9): Code(s): E66.3 - Overweight Plan Wants to lose 10 lbs ---Needs 70 - 75 grams per day. Minimal reflux is due to eating large quantities of food at her meals. Limit to 8 oz's. 9 - 2 eggs with 1/4 c vegetable 12 pm - yogurt or bar 4pm - 3 oz protein, 3 oz vegetal 2 oz rice/beans -- 25 grams 7pm - shake - 30 grams Exercise --2,000 yue - alternate with [place] Post op labs ordered - will review then decide if she needs vitamin supplementation Next appt Dee in 2 months. Patient is not considered stable at this time. I spent 30 minutes in total with patient reviewing/updating records, examining the patient and counseling the patient on weight management as detailed above. Orders: Orders Insulin Today E66.3 - Overweight, Z90.49 - Acquired absence of other specified parts of digestive tract Hemoglobin A1c Today E66.3 - Overweight, Z90.49 - Acquired absence of other specified parts of digestive tract Lipid Panel Today E66.3 - Overweight, Z90.49 - Acquired absence of other specified parts of digestive tract IRON PROFILE Today E66.3 - Overweight, Z90.49 - Acquired absence of other specified parts of digestive tract Comprehensive Met. Panel Today E66.3 - Overweight, Z90.49 - Acquired absence of other specified parts of digestive tract Vitamin B12 and Folate Today E66.3 - Overweight, Z90.49 - Acquired absence of other specified parts of digestive tract Zinc Today E66.3 - Overweight, Z90.49 - Acquired absence of other specified parts of digestive tract Vitamin A Today E66.3 - Overweight, Z90.49 - Acquired absence of other specified parts of digestive tract TSH reflex Free T4 Today E66.3 - Overweight, Z90.49 - Acquired absence of other specified parts of digestive tract Complete Blood Count Auto Diff Today E66.3 - Overweight, Z90.49 - Acquired absence of other specified parts of digestive tract C Reactive Protein Today E66.3 - Overweight, Z90.49 - Acquired absence of other specified parts of digestive tract Vitamin B1 Today E66.3 - Overweight, Z90.49 - Acquired absence of other specified parts of digestive tract Ferritin Today E66.3 - Overweight, Z90.49 - Acquired absence of other specified parts of digestive tract Vitamin D 25-OH Total Today E66.3 - Overweight, Z90.49 - Acquired absence of other specified parts of digestive tract Coding Level of Care Code Est Pt Level 4 (90966) Diagnoses Overweight (BMI 25.0-29.9) E66.3
[2023-07-13 13:29] VITALS: BP 142/81; PULSE 83; TEMP 36.3; O2SAT 99; BMI 27.6
== END 2023-07-13 14:02 | disposition home or self-care (01) ==
PROVIDERS: PCP Nurse Practitioner Family; Visit Provider Physician Assistant
DX: E66.3 Overweight (principal); Z68.27 Body mass index [BMI] 27.0-27.9, adult; Z90.3 Acquired absence of stomach [part of]; Z98.84 Bariatric surgery status
CPT/HCPCS: 99214

== ENCOUNTER → 2023-07-13 13:01 | Outpatient (BNVA) | payer OTHER, SELFPAY | PROVIDERS: PCP Nurse Practitioner Family; Visit Provider Physician Assistant | DX: E66.3 Overweight (principal); Z68.27 Body mass index [BMI] 27.0-27.9, adult | CPT/HCPCS: 99212 ==

== ENCOUNTER 2023-11-25 08:49 | Outpatient (AMB) | payer OTHER, SELFPAY ==
--- NOTE | 2023-11-25 09:04 | A.OFFVIS_ITS ---
VS Expanded 11/25/23 09:11 BP 121/84 Blood Pressure Location Rt brachial Blood Pressure Position Sitting Pulse 71 Pulse Source Pulse Oximeter Temp 97.6 F Temperature Source Temporal Artery Scan Pulse Oximetry 99 Oxygen Delivery Method Room Air Height 5 ft 5 in Weight 167 lb 6.4 oz BMI 27.9 Body Fat % 36.0 Body Fat Mass 60.2 Fat Free Mass 107.2 Visceral Fat Rating 7.0 Body Water % 45.6 Body Water Mass 76.2 Muscle Mass/Score 101.6 Basal Metabolic Rate/Score 1,463 Intake Visit Reasons: (OV) PO LSG 12/11/21 Allergies aspirin Allergy (Intermediate, Verified 11/25/23 09:11) Wheezing latex [LATEX] Allergy (Intermediate, Verified 11/25/23 09:11) EYES AND MOUTH SWELLING Medication List - Last Reconciled 11/25/23 by KINGSTON Gray albuterol sulfate 90 mcg/actuation (ProAir HFA) 2 puffs inhalation Q6H PRN cetirizine 10 mg PO DAILY cholecalciferol (vitamin D3) 125 mcg PO DAILY docusate sodium 100 mg PO DAILY PRN fluticasone propionate 220 mcg/actuation (Flovent HFA) 1 puff PO BID metoprolol succinate ER 25 mg PO DAILY montelukast 10 mg PO DAILY sumatriptan succinate 1 tab PO PRN trazodone 50 mg PO BEDTIME PRN HPI Comments Details: This?is a?48?yo female who is s/p LSG 12/11/2021. Presents for 2 year post op visit. 2lb weight gain since last OV in 06/2023.? Was hospitalized last month for stomach virus , feels better now. Reports reflux, no N/V. Notices this less with protein shakes, will get with water if Crystal Light is added. When questioned, she admits that her portion sizes have gotten larger and sometimes she eats quickly. Did not have labs done after last visit. Present meal plan includes: goal 70 - 75 grams per day 9am - 2 eggs with 1/4 c vegetable 12pm - yogurt or bar 4pm - 3 oz protein, 3 oz vegetable 2 oz rice/beans -- 25 grams 7pm - shake - 30 grams did follow the plan for a few months but lately has been going out to eat with her more now that [place] Exercise- likes [place], treadmill walking was not exercising as much but wants to restart after seeing body composition measurements [facility] Medical History (Updated 07/13/23 @ 13:35 by Toyin Andujar PA-C) Overweight Nausea Pre-op evaluation BMI 32.0-32.9,adult BMI 35.0-35.9,adult Obesity Asthma Ovarian cyst DJD (degenerative joint disease) Non-insulin dependent type 2 diabetes mellitus Renal and ureteric calculus Renal stone Kidney stones, calcium oxalate UTI (urinary tract infection) Surgical History Status post sleeve gastrectomy Hx of lithotripsy Hx of endoscopy Hx of colonoscopy Hx of abdominoplasty Hx of hysterectomy Hx of section Family History Mother Hypertension Hypercholesteremia Father Asthma Daughter Obesity PCOS (polycystic ovarian syndrome) Son Hypertension Asthma Autism Social History Are you a primary career consultant to a significant other at home: Yes (sons 27 + 16 has autism) Do you presently have visiting nurse or other home services: Yes (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) Alcohol intake: current Alcohol intake frequency: does not drink Patient Tobacco Use Status: Never used Tobacco service: No Current occupational status: unemployed Physical Exam Vital Signs: Last Vital Signs Temp 97.6 F 11/25/23 09:11 Pulse 71 11/25/23 09:11 BP 121/84 11/25/23 09:11 Pulse Ox 99 11/25/23 09:11 Oxygen Delivery Method Room Air 11/25/23 09:11 BMI result Body Mass Index 27.9 Assessment & Plan Assessment & Plan (1) Overweight (BMI 25.0-29.9): Code(s): E66.3 - Overweight Category: Medical (2) Status post sleeve gastrectomy: Comment: 12/11/21 Code(s): Z90.3 - Acquired absence of stomach [part of] Category: Surgical Plan Pt states her personal goal weight is ~155-160, felt too thin/sick at 150. At her request wrote down meal plan above. She plans to restart exercise and get labs done today. Can use pantoprazole PRN for reflux, discussed triggers and eating/drinking slowly with appropriate portion sizes. RTC 3 months. I spent a total of 30 minutes reviewing/updating records, examining the patient and counseling the patient on weight management as detailed above. Medications: New pantoprazole 40 mg PO DAILY PRN 90 tabs 1RF reflux Refilled cholecalciferol (vitamin D3) 125 mcg PO DAILY 90 caps 3RF
[2023-11-25 09:11] VITALS: BP 121/84; PULSE 71; TEMP 36.4; O2SAT 99; BMI 27.9
== END 2023-11-25 10:03 | disposition home or self-care (01) ==
PROVIDERS: PCP Nurse Practitioner Family; Visit Provider Physician Assistant Surgical
DX: E66.3 Overweight (principal); Z68.27 Body mass index [BMI] 27.0-27.9, adult; Z90.3 Acquired absence of stomach [part of]; Z98.84 Bariatric surgery status
CPT/HCPCS: 99214

== ENCOUNTER 2023-11-25 08:49 | Outpatient (REF) | payer OTHER, SELFPAY ==
[2023-11-25 10:23] LABS: MANUAL DIFF FLAG NO
[2023-11-25 11:44] LABS: Basophils Percent Auto 0.8 % (0-2); Eosinophils Absolute Auto 0.1 X10*3/uL (0.0-0.4); Eosinophils Percent Auto 2.7 % (0-4); Hematocrit 41.8 % (37.0-47.0); Hemoglobin 13.9 g/dl (12.0-16.0); Imm Gran Abs Auto 0.01 X10*3/uL (0.00-0.03); Imm Gran Pct Auto 0.3 % (0.0-0.4); Lymphocytes Absolute Auto 1.7 X10*3/uL (1.2-4.9); Mean Corpuscular HGB Conc 33.3 g/dl (31.0-35.0); Mean Corpuscular Hemoglobin 28.6 pg (27.0-33.0); Mean Platelet Volume 10.4 fL (9.4-12.3); Monocytes Absolute Auto 0.4 X10*3/uL (0.1-1.2); Monocytes Percent Auto 10.5 % (2-11); Neutrophils Absolute Auto 1.5 x10*3/uL (2.0-8.3); Neutrophils Percent Auto 40.7 % (45-73); Platelet Count 274 X10*3/uL (160-400); Red Blood Count 4.86 X10*6/uL (4.20-5.50); Red Cell Distribution Width 12.6 % (11.0-16.0); White Blood Count 3.7 X10*3/uL (4.8-10.8)
[2023-11-25 11:49] LABS: Estimated Average Glucose 105 mg/dL; Hemoglobin A1c % 5.3 % (<6.0)
[2023-11-25 12:23] LABS: Alanine Aminotransferase 23 U/L (0-31); Albumin Level 4.3 g/dL (3.5-5.0); Alkaline Phosphatase 83 U/L (39-117); Anion Gap 12 (12-20); Aspartate Amino Transferase 23 U/L (5-31); Bilirubin Total 0.8 mg/dL (0.0-1.0); Blood Urea Nitrogen 23 mg/dL (9-16); C Reactive Protein < 0.10 mg/dL (< or = 0.50); Carbon Dioxide 28 mmol/L (22-29); Chloride 105 mmol/L (96-108); Cholesterol 254 mg/dL (<200); Estimated Glomerular Filt Rate > 60; Glucose Random 92 mg/dL (60-115); HDL Cholesterol 61 mg/dL (>40); Iron 142 mcg/dL (30-160); LDL Cholesterol Calculated 165 mg/dL (<100); Percent Iron Saturation 50 % (15-50); Potassium 4.2 mmol/L (3.3-5.1); Sodium 141 mmol/L (135-145); Total Iron Binding Capacity 286 mcg/dL (228-428); Total Protein 7.6 g/dL (6.5-8.0); Triglycerides 144 mg/dL (<150); Unsaturated Iron Binding 144 ug/dL
[2023-11-25 12:43] LABS: Ferritin 143 ng/mL (10-250); Insulin 9 uU/mL (2-29); TSH reflex Free T4 1.58 uIU/mL (0.32-4.0); Vitamin D 25-OH Total 41.3 ng/mL (>30)
[2023-11-25 12:49] LABS: Folate 10.3 ng/mL (> or = 4.0); Vitamin B12 > 2000 pg/mL (200-900)
[2023-11-29 12:48] LABS: Zinc 72 mcg/dL (60-130)
[2023-11-30 04:18] LABS: Vitamin A 59 mcg/dL (38-98)
[2023-12-01 14:19] LABS: Vitamin B1 13 nmol/L (8-30)
== END 2023-11-25 08:50 | disposition home or self-care (01) ==
LOC: HO.LAB 08:49
PROVIDERS: PCP Nurse Practitioner Family; Visit Provider Physician Assistant
DX: E66.3 Overweight (principal); Z90.49 Acquired absence of other specified parts of digestive tract; Z90.3 Acquired absence of stomach [part of]
CPT/HCPCS: 36415; 80053; 80061; 82306; 82607; 82728; 82746; 83036; 83525; 83540; 84425; 84443; 84590; 84630; 85025; 86140; 99212

== ENCOUNTER 2024-02-29 11:00 | Outpatient (AMB) | payer OTHER, SELFPAY ==
--- NOTE | 2024-02-29 11:00 | A.OFFVIS_ITS ---
VS Expanded 02/29/24 11:16 Height 5 ft 5 in Weight 170 lb BMI 28.3 Intake Visit Reasons: (TV) PO LSG 12/11/21 Side Show Entertainer Required: Yes Side Show Entertainer Name: Junito [id number] Jose Allergies aspirin Allergy (Intermediate, Verified 11/25/23 09:11) Wheezing latex [LATEX] Allergy (Intermediate, Verified 11/25/23 09:11) EYES AND MOUTH SWELLING Medication List - Last Reconciled 02/29/24 by KINGSTON Gray albuterol sulfate 90 mcg/actuation (ProAir HFA) 2 puffs inhalation Q6H PRN cetirizine 10 mg PO DAILY cholecalciferol (vitamin D3) 125 mcg PO DAILY docusate sodium 100 mg PO DAILY PRN fluticasone propionate 220 mcg/actuation (Flovent HFA) 1 puff PO BID metoprolol succinate ER 25 mg PO DAILY montelukast 10 mg PO DAILY pantoprazole 40 mg PO DAILY PRN sumatriptan succinate 1 tab PO PRN trazodone 50 mg PO BEDTIME PRN HPI Comments Details: This?is a?48?yo female who is s/p LSG 12/11/2021. Presents for 2 year 3 month post op visit. Weight at last visit on 11/25/2023 was 167.4 pounds with a BMI of 27.9, weight today is 170 pounds, representing a 3 pound weight gain with a BMI today of 28.3.? No complaints of nausea, emesis, abdominal pain, or constipation. Takes pantoprazole for reflux when triggered. Present meal plan includes: goal 70 - 75 grams per day 9am - 2 eggs with 1/4 c vegetable 12pm - yogurt or bar 4pm - 3 oz protein, 3 oz vegetable 2 oz rice/beans - 25 grams 7pm - shake - 30 grams was going out to eat with her more now that [place] takes MVI but not consistent Exercise- likes [place], treadmill walking has restarted exercise after last visit [facility] Medical History (Updated 07/13/23 @ 13:35 by Toyin Andujar PA-C) Overweight Nausea Pre-op evaluation BMI 32.0-32.9,adult BMI 35.0-35.9,adult Obesity Asthma Ovarian cyst DJD (degenerative joint disease) Non-insulin dependent type 2 diabetes mellitus Renal and ureteric calculus Renal stone Kidney stones, calcium oxalate UTI (urinary tract infection) Surgical History Status post sleeve gastrectomy Hx of lithotripsy Hx of endoscopy Hx of colonoscopy Hx of abdominoplasty Hx of hysterectomy Hx of section Family History Mother Hypertension Hypercholesteremia Father Asthma Daughter Obesity PCOS (polycystic ovarian syndrome) Son Hypertension Asthma Autism Social History Are you a primary customer care coordinator to a significant other at home: Yes (sons 27 + 16 has autism) Do you presently have visiting nurse or other home services: Yes (for son TRAFFIC MAINTENANCE OFFICER 2 hours/day) Alcohol intake: current Alcohol intake frequency: does not drink Patient Tobacco Use Status: Never used Tobacco service: No Current occupational status: unemployed Telehealth Telehealth Telehealth Platform: Telephone Location of provider rendering services: practice address Location of patient: other Patient Identification confirmed using: Name, : Yes Telehealth method: voice only Patient verbally consented to treatment: Yes Patient verbally consented to billing insurance company: Yes Patient informed of any privacy concerns related to visit: Yes Minutes spent on Phone/Video with Pt.: 16 Assessment & Plan Assessment & Plan (1) Overweight (BMI 25.0-29.9): Code(s): E66.3 - Overweight Category: Medical (2) Status post sleeve gastrectomy: Comment: 12/11/21 Code(s): Z90.3 - Acquired absence of stomach [part of] Category: Medical Plan Pt feels confident that she can get achieve weight loss closer to 160lbs if consistent on meal plan and exercise regimen. On previous labs, B12 <2000, pt ok to take MVI every other day. Discussed drinking slowly to minimize reflux symptoms. RTC 3 months to ensure pt is losing weight. I spent a total of 30 minutes reviewing/updating records, examining the patient and counseling the patient on weight management as detailed above.
[2024-02-29 11:16] VITALS: BMI 28.3
== END 2024-02-29 11:26 | disposition home or self-care (01) ==
LOC: HO.HBS 11:09
PROVIDERS: PCP Nurse Practitioner Family; Visit Provider Physician Assistant Surgical
DX: E66.3 Overweight (principal); Z68.28 Body mass index [BMI] 28.0-28.9, adult; Z90.3 Acquired absence of stomach [part of]; Z98.84 Bariatric surgery status
CPT/HCPCS: 99214; G2211

== ENCOUNTER 2024-06-13 10:44 | Outpatient (AMB) | payer OTHER, SELFPAY ==
--- NOTE | 2024-06-13 10:34 | A.OFFVIS_ITS ---
Intake Visit Reasons: TELEPHONE PO LSG 12/11/21 Sales Enablement Specialist Required: Yes Sales Enablement Specialist Name: [id number] Chase Sandoval Information Interpreted: clinical only Allergies aspirin Allergy (Intermediate, Verified 11/25/23 09:11) Wheezing latex [LATEX] Allergy (Intermediate, Verified 11/25/23 09:11) EYES AND MOUTH SWELLING Medication List - Last Reconciled 06/13/24 by KINGSTON Gray albuterol sulfate 90 mcg/actuation (ProAir HFA) 2 puffs inhalation Q6H PRN cetirizine 10 mg PO DAILY cholecalciferol (vitamin D3) 125 mcg PO DAILY docusate sodium 100 mg PO DAILY PRN fluticasone propionate 220 mcg/actuation (Flovent HFA) 1 puff PO BID metoprolol succinate ER 25 mg PO DAILY montelukast 10 mg PO DAILY pantoprazole 40 mg PO DAILY PRN sumatriptan succinate 1 tab PO PRN trazodone 50 mg PO BEDTIME PRN HPI Comments Details: This?is a?48?yo female who is s/p LSG 12/11/2021. Presents for 2.5y post op v isit. Weight at last visit on 02/29/2024 was 170 pounds with a BMI of 28.3, pt unsure of her weight today as her scale is not working but she feels that she has lost a few lbs.? No complaints of nausea, emesis, abdominal pain or reflux, or constipation. Present meal plan includes: goal 70 - 75 grams per day 9am - 2 eggs with 1/4 c vegetable 12pm - yogurt or bar 4pm - 3 oz protein, 3 oz vegetable 2 oz rice/beans - 25 grams 7pm - shake - Pure Protein Exercise- likes [place], treadmill walking has restarted exercise after last visit asks about increasing muscle mass PFSH Medical History (Updated 07/13/23 @ 13:35 by Toyin Andujar PA-C) Overweight Nausea Pre-op evaluation BMI 32.0-32.9,adult BMI 35.0-35.9,adult Obesity Asthma Ovarian cyst DJD (degenerative joint disease) Non-insulin dependent type 2 diabetes mellitus Renal and ureteric calculus Renal stone Kidney stones, calcium oxalate UTI (urinary tract infection) Surgical History Status post sleeve gastrectomy Hx of lithotripsy Hx of endoscopy Hx of colonoscopy Hx of abdominoplasty Hx of hysterectomy Hx of section Family History Mother Hypertension Hypercholesteremia Father Asthma Daughter Obesity PCOS (polycystic ovarian syndrome) Son Hypertension Asthma Autism Social History Are you a primary foster care social worker to a significant other at home: Yes (sons 27 + 16 has autism) Do you presently have visiting nurse or other home services: Yes (for son OPERATOR GROUND BASED AIR DEFENCE 2 hours/day) Alcohol intake: current Alcohol intake frequency: does not drink Patient Tobacco Use Status: Never used Tobacco service: No Current occupational status: unemployed Telehealth Telehealth Telehealth Platform: Telephone Location of provider rendering services: other Location of patient: address on file Patient Identification confirmed using: Name, : Yes Telehealth method: voice only Patient verbally consented to treatment: Yes Patient verbally consented to billing insurance company: Yes Patient informed of any privacy concerns related to visit: Yes Minutes spent on Phone/Video with Pt.: 16 Assessment & Plan Assessment & Plan (1) Overweight (BMI 25.0-29.9): Code(s): E66.3 - Overweight Category: Medical (2) Status post sleeve gastrectomy: Comment: 12/11/21 Code(s): Z90.3 - Acquired absence of stomach [part of] Category: Surgical Plan Pt is back on track with meal plan and exercise regimen after gaining some weight. Her PCP is also monitoring high B12 levels, pt reports she is not currently taking her vitamin due to this. She is seeing hematology this week for further workup. Looking back her level was high even before surgery. Will send video workout sheet, recommended [employer] website for weight training videos. RTC 3mo per pt preference. I spent a total of 30 minutes reviewing/updating records, examining the patient and counseling the patient on weight management as detailed above.
--- OUTSIDE RECORDS SUMMARY | 2024-06-13 12:07 | XMS_ITS | Clinical Summary ---
Author Organization [email or web address] [facility] ity Address [address] [place] [address] Care Team Providers Care Field Services Director Name Role Phone Unavailable Primary Care Provider Unavailabl e Social History Tobacco Use Types Packs/Day Years Used Date Smoking Tobacco: Never Assessed Comments Unknown Sex and Gender Information Value Date Recorded Sex Assigned at Not on file Legal Sex Female 5:56 PM EST Gender Identity Not on file Sexual Orientation Not on file Plan of Treatment Health Maintenance Due Date Last Done Comments Breast Cancer Screening 1975 DTaP,Tdap,and Td Vaccines (1 - Tdap) 11/18/1994 Hepatitis B Vaccines (1 of 3 - 19+ 3-dose series) 11/18/1994 Cervical Cancer Screening: P ap Smear 11/18/1996 COVID-19 Vaccine (2023-2 5 season) 2023 Influenza Vaccine (#1) 2023 HIB Vaccines Aged Out No longer eligi ble based on patient's age to complete this topic HPV Vaccines Aged Out No longer eligi ble based on patient's age to complete this topic Hepatitis A Vaccines Aged Out No long er eligible based on patient's age to complete this topic IPV Vaccines Aged Out No longer eligi ble based on patient's age to complete this topic MMR Vaccines Aged Out No longer eligi ble based on patient's age to complete this topic Meningococcal ACWY Vaccine Aged Out N o longer eligible based on patient's age to complete this topic Meningococcal B Vacine Aged Out No lo nger eligible based on patient's age to complete this topic Pneumococcal Vaccine: Pediat rics (0 to 5 Years) and At-Risk Patients (6 to 64 Years) Aged Out No longer eligible b ased on patient's age to complete this topic RSV Immunization Patients Un cameron 20 months Aged Out No longer eligible b ased on patient's age to complete this topic Varicella Vaccines Aged Out No longer eligible based on patient's age to complete this topic
== END 2024-06-13 11:08 | disposition home or self-care (01) ==
LOC: HO.HBS 10:44
PROVIDERS: PCP Nurse Practitioner Family; Visit Provider Physician Assistant Surgical
DX: E66.3 Overweight (principal); Z68.28 Body mass index [BMI] 28.0-28.9, adult; Z90.3 Acquired absence of stomach [part of]; Z98.84 Bariatric surgery status
CPT/HCPCS: 99214; G2211

== ENCOUNTER 2025-03-22 10:07 | Outpatient (AMB) | payer OTHER, SELFPAY ==
--- NOTE | 2025-03-22 10:00 | MHC.OFFVISWM ---
VS Expanded 03/22/25 10:03 Height 5 ft 5 in Weight 170 lb BMI 28.3 Intake Visit Reasons: TV PO LSG 12/11/21 Bologna Maker Required: Yes Bologna Maker Name: Junito Zhang Information Interpreted: clinical only Allergies aspirin Allergy (Intermediate, Verified 11/25/23 09:11) Wheezing latex (LATEX) Allergy (Intermediate, Verified 11/25/23 09:11) EYES AND MOUTH SWELLING Medication List - Last Reconciled 03/22/25 by KINGSTON Gray albuterol sulfate 90 mcg/actuation (ProAir HFA) 2 puffs inhalation Q6H PRN cetirizine 10 mg PO DAILY cholecalciferol (vitamin D3) 125 mcg PO DAILY docusate sodium 100 mg PO DAILY PRN fluticasone propionate 220 mcg/actuation (Flovent HFA) 1 puff PO BID metoprolol succinate ER 25 mg PO DAILY montelukast 10 mg PO DAILY pantoprazole 40 mg PO DAILY PRN sumatriptan succinate 1 tab PO PRN trazodone 50 mg PO BEDTIME PRN HPI Comments Details: This?is a?49?yo F who is s/p LSG 12/11/2021. Presents for 3 year 4 month post op visit. Last recorded weight was 170 in 2023. She is unsure of weight today. The last time she weighed herself she was 170 also, which was last month. No complaints of nausea, emesis, abdominal pain or reflux, or constipation. Last meal plan given: goal 70 - 75 grams per day 9am - 2 eggs with 1/4 c vegetable 12pm - yogurt or bar 4pm - 3 oz protein, 3 oz vegetable 2 oz rice/beans - 25 grams 7pm - shake - Pure Protein I don't eat much sometimes will have shake in AM and sometimes evening; will have rice/beans/meat at lunch Exercise- likes [place], treadmill walking admits she has not been exercising- has issues with sciatica She is concerned about an abdominal wall hernia. She reports this is to the right of her belly button. [facility] Medical History (Updated 07/13/23 @ 13:35 by Toyin Andujar PA-C) Overweight Nausea Pre-op evaluation BMI 32.0-32.9,adult BMI 35.0-35.9,adult Obesity Asthma Ovarian cyst DJD (degenerative joint disease) Non-insulin dependent type 2 diabetes mellitus Renal and ureteric calculus Renal stone Kidney stones, calcium oxalate UTI (urinary tract infection) Surgical History Status post sleeve gastrectomy Hx of lithotripsy Hx of endoscopy Hx of colonoscopy Hx of abdominoplasty Hx of hysterectomy Hx of section Family History Mother Hypertension Hypercholesteremia Father Asthma Daughter Obesity PCOS (polycystic ovarian syndrome) Son Hypertension Asthma Autism Social History Are you a primary palliative care coordinator to a significant other at home: Yes (sons 27 + 16 has autism) Do you presently have visiting nurse or other home services: Yes (for son CLIENT SUCCESS DIRECTOR 2 hours/day) Alcohol intake: current Alcohol intake frequency: does not drink Patient Tobacco Use Status: Never used Tobacco service: No Current occupational status: unemployed Telehealth Telehealth Telehealth Platform: Telephone Location of provider rendering services: practice address Location of patient: address on file Patient Identification confirmed using: Name, : Yes Telehealth method: voice only Patient verbally consented to treatment: Yes Patient verbally consented to billing insurance company: Yes Patient informed of any privacy concerns related to visit: Yes Minutes spent on Phone/Video with Pt.: 24 Assessment & Plan Assessment & Plan (1) Status post sleeve gastrectomy: Comment: 12/11/21 Code(s): Z90.3 - Acquired absence of stomach [part of] Category: Surgical (2) Overweight (BMI 25.0-29.9): Code(s): E66.3 - Overweight Category: Medical Plan Pt understands that lack of exercise is hindering weight loss efforts. We discussed that she has started incorporating more solid food which is likely resulting in some weight gain. Likes Pure Protein shakes and Pure protein bars. Gave pt two options for meal plan: 9am - Pure Protein shake HALF scoop 12pm - Pure Protein bar 4pm - 3 oz protein, 3 oz vegetable 7pm - Pure Protein shake HALF scoop OR 9am - Pure Protein shake- HALF scoop 12pm - Pure Protein bar 4pm - 3 oz protein, 3 oz vegetable 7pm - Pure Protein bar She is concerned about an abdominal wall hernia. She reports this is to the right of her belly button. Not underneath a previous incision. Gave her contact info for general surgery office. RTC 3 mo TV.
[2025-03-22 10:03] VITALS: BMI 28.3
--- OUTSIDE RECORDS SUMMARY | 2025-03-22 11:28 | XMS_ITS | Clinical Summary ---
Author Organization [facility] Address [address] [place] [address] Care Team Providers Care Corrections Nurse Name Role Phone Unavailable Primary Care Provider [...] Cervical Cancer Screening: P ap Smear 11/18/1996 Depression Screening 04/20/2024 COVID-19 Vaccine (1 - 2024-2 6 season) 2024 Influenza Vaccine (#1) 2024 RSV Immunization Adult Patie nts (1 - 1-dose 75+ series) 11/18/2050 HIB Vaccines Aged Out No longer eligi [...] age to complete this topic Meningococcal B Vaccine Aged Out No l onger eligible based on patient's age to complete this topic Pneumococcal Vaccine: Pediat rics (0 to 5 Years) and At-Risk Patients (6 to 49 Years) Aged Out No longer eligible b ased on patient's age to complete this topic RSV Immunization Patients Un cameron 20 months Aged Out No longer eligible b ased on patient's age to complete this topic Varicella Vaccines Aged Out No longer eligible based on patient's age to complete this topic
== END 2025-03-22 10:30 | disposition home or self-care (01) ==
LOC: HO.HBS 10:07
PROVIDERS: PCP Nurse Practitioner Family; Visit Provider Physician Assistant Surgical
DX: E66.3 Overweight (principal); Z68.28 Body mass index [BMI] 28.0-28.9, adult; Z90.3 Acquired absence of stomach [part of]; Z98.84 Bariatric surgery status
CPT/HCPCS: 98014